=== PATIENT | male | born 1950 | race Caucasian/White ===

== ENCOUNTER 2017-11-06 12:38 | Inpatient (IN) | payer MEDICARE, OTHER ==
[~2017-11-06] VITALS: Ht 182.9 cm; Wt 120.5 kg
[2017-11-06] MEDS ORDERED: FLOMAX0.4 MG PO (13:43)
[2017-11-07] MEDS ORDERED: ZESTRIL20 MG PO (11:59)
[2017-11-07] MEDS ORDERED: METOPROLOL TART25 MG PO (12:01)
[2017-11-07] MEDS ORDERED: FINASTERIDE5 MG PO (12:02)
[2017-11-08] MEDS ORDERED: KEFLEX250 MG PO (09:26)
== END 2017-11-08 11:50 | disposition home or self-care (01) | DRG 683 ==
LOC: ED 12:38 → MS 16:49
PROVIDERS: ADMIT Internal Medicine
DX: N17.9 Acute kidney failure, unspecified (principal); N39.0 Urinary tract infection, site not specified; N40.1 Benign prostatic hyperplasia with lower urinary tract symptoms; R33.8 Other retention of urine; I10 Essential (primary) hypertension; Z79.899 Other long term (current) drug therapy; Z87.442 Personal history of urinary calculi
CPT/HCPCS: 36415; 80048; 80053; 81001; 85025; 87077; 87088; 87186; J0696; J7030

== ENCOUNTER 2018-01-24 11:24 | Emergency (ER) | payer MEDICARE ==
[~2018-01-24] VITALS: Ht 182.9 cm; Wt 119.5 kg
[~2018-01-24 11:24] MED LIST: FINASTERIDE5 MG PO; FLOMAX0.4 MG PO; KEFLEX250 MG PO; METOPROLOL TART25 MG PO; ZESTRIL20 MG PO
[2018-01-24] MEDS ORDERED: INDAPAMIDE1.25 MG PO (11:46)
[2018-01-24] MEDS ORDERED: NORVASC5 MG PO (13:56)
[2018-01-24] MEDS ORDERED: METOPROLOL TART25 MG PO (14:17)
--- NOTE | 2018-01-25 13:08 | EKG ---
[facility] [address] [facility] [place] [address] Signed Normal sinus rhythm Right bundle branch block Abnormal ECG No previous ECGs available Confirmed by CIERA VILLARREAL MD ([id number]) on 01/25/2018 1:08:10 PM Electronically Signed By: CIERA VILLARREAL MD 01/25/18 1308 PATIENT NAME: SHANKAR DEVRIES Electrocardiogram DATE OF : 46 PHYSICIAN: CIERA VILLARREAL MD REPORT #: [id number] REPORT IS CONFIDENTIAL AND NOT TO BE RELEASED WITHOUT AUTHORIZATION
== END 2018-01-24 14:55 | disposition home or self-care (01) ==
LOC: ED 11:24
DX: I12.9 Hypertensive chronic kidney disease with stage 1 through stage 4 chronic kidney disease, or unspecified chronic kidney disease (principal); N18.9 Chronic kidney disease, unspecified; Z87.891 Personal history of nicotine dependence; Z79.899 Other long term (current) drug therapy
CPT/HCPCS: 80053; 84484; 85025; 93005; 93010; 99284

== ENCOUNTER 2020-03-25 09:34 | Emergency (ER) | payer OTHER, MEDICARE ==
[~2020-03-25] VITALS: Ht 182.9 cm; Wt 119.5 kg
--- OUTSIDE RECORDS SUMMARY | ~2020-03-25 | XMS | Encounter Summary ---
Demographics + + + | Address | [address] | | | [place] [address] | + + + | Home Phone | | + + + | Preferred Language | Unknown | + + + | Marital Status | Single | + + + | Episcopal Affiliation | Unknown | + + + | Race | White | + + + | Ethnic Group | Not or | + + + Author + + + | Author | [facility] | | | and [place] | + + + | Organization | [facility] | | | and [place] | + + + | Address | Unknown | + + + | Phone | Unavailable | + + + Support + + +---------+ + | Name | Relationship | Address | Phone | + + +---------+ + | Calderon Wise | ECON | Unknown | | + + +---------+ + Care Team Providers + +------+ + | Care Signal Maintainer Name | Role | Phone | + +------+ + PCP | Unavailable | + +------+ + Encounter Details +--------+ + + + + | Date | Type | Department | Care Team | Description | +--------+ + + + + | 07/19/ | Orders Only | [facility] | Pacheco Munson MD | | | 2019 | | NEPHROLOGY [place] | [address] [place] | | | | | [address] [place] | [address] [place] | | | | | [address] [place] | [address] | | | | | [address] | | | | | | [phone] | | | +--------+ + + + + Social History + +-------+ +--------+------+ | Tobacco Use | Types | Packs/Day | Years | Date | | | | | Used | | + +-------+ +--------+------+ | Never Assessed | | | | | + +-------+ +--------+------+ + + + | Sex Assigned at | Date Recorded | | | | + + + | Not on file | | + + + documented as of this encounter Plan of Treatment Not on filedocumented as of this encounter Procedures + +--------+ + + + | Procedure Name | Priori | Date/Time | Associated Diagnosis | Comments | | | ty | | | | + +--------+ + + + | CBC WITH MANUAL | Routin | 07/19/2018 | | Results for this | | DIFFERENTIAL | e | 12:15 PM | | procedure are in the | | | | PST | | results section. | + +--------+ + + + | PROTEIN/CREATININE | Routin | 07/19/2018 | | Results for this | | RATIO, URINE | e | 12:15 PM | | procedure are in the | | | | PST | | results section. | + +--------+ + + + | URIC ACID | Routin | 07/19/2018 | | Results for this | | | e | 12:15 PM | | procedure are in the | | | | PST | | results section. | + +--------+ + + + | PARATHYROID HORMONE, | Routin | 07/19/2018 | | Results for this | | INTACT | e | 12:15 PM | | procedure are in the | | | | PST | | results section. | + +--------+ + + + | MAGNESIUM | Routin | 07/19/2018 | | Results for this | | | e | 12:15 PM | | procedure are in the | | | | PST | | results section. | + +--------+ + + + | RENAL FUNCTION PANEL | Routin | 07/19/2018 | | Results for this | | | e | 12:15 PM | | procedure are in the | | | | PST | | results section. | + +--------+ + + + documented in this encounter Results Protein/Creatinine Ratio, Urine (07/19/2018 12:15 PM PST) + + + + + + | Component | Value | Ref Range | Performed | Pathologist | | | | | At | Signature | + + + + + + | Protein/Cre | 1219.5 (A) | 0 - 150 | EXTERNAL | | | at Ratio | | | LAB | | + + + + + + + + | Specimen | + + | Urine specimen | | (specimen) | + + + +---------+ + + | Performing | Address | City/State/Zipcode | Phone Number | | Organization | | | | + +---------+ + + | EXTERNAL LAB | | | | + +---------+ + + CBC with Manual Differential (07/19/2018 12:15 PM PST) + +-------+ + + + | Component | Value | Ref Range | Performed | Pathologist | | | | | At | Signature | + +-------+ + + + | WBC | 6.3 | 4.5 - 11.0 10 | EXTERNAL | | | | | | LAB | | + +-------+ + + + | Non- | 5.06 | 4.3 - 5.7 10 | EXTERNAL | | | Red Blood | | | LAB | | | Cells | | | | | | Counted | | | | | + +-------+ + + + | Hemoglobin | 15.5 | 13.5 - 18.0 | EXTERNAL | | | | | g/dL | LAB | | + +-------+ + + + | Hematocrit, | 45.4 | 41 - 50 % | EXTERNAL | | | POC | | | LAB | | + +-------+ + + + | MCV | 89.8 | 81 - 99 fL | EXTERNAL | | | | | | LAB | | + +-------+ + + + | MCH | 31 | 27 - 33 | EXTERNAL | | | | | | LAB | | + +-------+ + + + | MCHC | 34 | 30 - 36 g/dL | EXTERNAL | | | | | | LAB | | + +-------+ + + + | RDW-CV | | % | EXTERNAL | | | | | | LAB | | + +-------+ + + + | Platelet | 140 | 140 - 440 K/ L | EXTERNAL | | | Count | | | LAB | | | Plasma | | | | | + +-------+ + + + | MPV | | fL | EXTERNAL | | | | | | LAB | | + +-------+ + + + | % Segmented | | % | EXTERNAL | | | | | | LAB | | | Neutrophils | | | | | + +-------+ + + + | % | | % | EXTERNAL | | | Lymphocytes | | | LAB | | + +-------+ + + + | % Monocytes | | % | EXTERNAL | | | | | | LAB | | + +-------+ + + + | % | | % | EXTERNAL | | | Eosinophils | | | LAB | | + +-------+ + + + | % Basophils | | % | EXTERNAL | | | | | | LAB | | + +-------+ + + + | Absolute | | / L | EXTERNAL | | | Neutrophils | | | LAB | | + +-------+ + + + | Absolute | | / L | EXTERNAL | | | Lymphocytes | | | LAB | | + +-------+ + + + | Absolute | | / L | EXTERNAL | | | Monocytes | | | LAB | | + +-------+ + + + | Absolute | | / L | EXTERNAL | | | Eosinophils | | | LAB | | + +-------+ + + + | Absolute | | / L | EXTERNAL | | | Basophils | | | LAB | | + +-------+ + + + + + | Specimen | + + | Blood specimen | | (specimen) | + + + +---------+ + + | Performing | Address | City/State/Zipcode | Phone Number | | Organization | | | | + +---------+ + + | EXTERNAL LAB | | | | + +---------+ + + Uric Acid (07/19/2018 12:15 PM PST) + +-------+ + + + | Component | Value | Ref Range | Performed | Pathologist | | | | | At | Signature | + +-------+ + + + | Uric Acid | 7.1 | 4.4 - 7.6 | EXTERNAL | | | | | | LAB | | + +-------+ + + + + + | Specimen | + + | Blood specimen | | (specimen) | + + + +---------+ + + | Performing | Address | City/State/Zipcode | Phone Number | | Organization | | | | + +---------+ + + | EXTERNAL LAB | | | | + +---------+ + + Parathyroid Hormone, Intact (07/19/2018 12:15 PM PST) + + + + + + | Component | Value | Ref Range | Performed | Pathologist | | | | | At | Signature | + + + + + + | PTH INTACT | 286.4 (A) | 15 - 65 pg/mL | EXTERNAL | | | | | | LAB | | + + + + + + + + | Specimen | + + | Blood specimen | | (specimen) | + + + +---------+ + + | Performing | Address | City/State/Zipcode | Phone Number | | Organization | | | | + +---------+ + + | EXTERNAL LAB | | | | + +---------+ + + Magnesium (07/19/2018 12:15 PM PST) + +-------+ + + + | Component | Value | Ref Range | Performed | Pathologist | | | | | At | Signature | + +-------+ + + + | Magnesium | 1.9 | 1.7 - 2.5 mg/dL | EXTERNAL | | | | | | LAB | | + +-------+ + + + + + | Specimen | + + | Blood specimen | | (specimen) | + + + +---------+ + + | Performing | Address | City/State/Zipcode | Phone Number | | Organization | | | | + +---------+ + + | EXTERNAL LAB | | | | + +---------+ + + Renal Function Panel (07/19/2018 12:15 PM PST) + + + + + + | Component | Value | Ref Range | Performed | Pathologist | | | | | At | Signature | + + + + + + | Glucose, | 97 | 70 - 100 mg/dL | EXTERNAL | | | Fasting | | | LAB | | + + + + + + | BUN | 32 (A) | 6 - 23 mg/dL | EXTERNAL | | | | | | LAB | | + + + + + + | Creatinine | 1.69 (A) | 0.70 - 1.25 | EXTERNAL | | | | | mg/dL | LAB | | + + + + + + | PHOSPHORUS | 7.9 (A) | 2.5 - 5.0 mg/dL | EXTERNAL | | | | | | LAB | | + + + + + + | Albumin | 4.0 | 3.5 - 5.0 | EXTERNAL | | | | | | LAB | | + + + + + + | Na | 143 | 132 - 143 | EXTERNAL | | | | | mmol/L | LAB | | + + + + + + | K | 3.7 | 3.6 - 5.1 | EXTERNAL | | | | | mmol/L | LAB | | + + + + + + | Cl | 106 | 95 - 112 mmol/L | EXTERNAL | | | | | | LAB | | + + + + + + | CO2 | 23 | 19 - 31 mmol/L | EXTERNAL | | | | | | LAB | | + + + + + + | Anion Gap | 17.7 | 7 - 21 mmol/L | EXTERNAL | | | | | | LAB | | + + + + + + | eGFR, | | | EXTERNAL | | | non- | | | LAB | | | [place] | | | | | + + + + + + | Phosphorus, | | | EXTERNAL | | | Inorganic | | | LAB | | + + + + + + | BUN/Creatin | 18.9 | 6.0 - 28.6 | EXTERNAL | | | ine Ratio | | | LAB | | + + + + + + | Calcium | 10.0 | 8.5 - 10.3 | EXTERNAL | | | | | mg/dL | LAB | | + + + + + + | Estimated | 40 (A) | 60 - 140 mg/dL | EXTERNAL | | | GFR | | | LAB | | + + + + + + + + | Specimen | + + | Blood specimen | | (specimen) | + + + +---------+ + + | Performing | Address | City/State/Zipcode | Phone Number | | Organization | | | | + +---------+ + + | EXTERNAL LAB | | | | + +---------+ + + documented in this encounter Visit Diagnoses Not on filedocumented in this encounter"
--- OUTSIDE RECORDS SUMMARY | ~2020-03-25 | XMS | Encounter Summary ---
Demographics + + + | Address | [address] | | | [place] [address] | + + + | Home Phone | | + + + | Preferred Language | Unknown | + + + | Marital Status | Single | + + + | Gnosticist Affiliation | Unknown | + + + | Race | White | + + + | Ethnic Group | Not or | + + + Author + + + | Author | [facility] | | | and [place] | + + + | Organization | [facility] | | | [...] Team Providers + +------+ + | Care Bag Sorter Name | Role | Phone | + +------+ + | Eric Jerry STUDIO COORDINATOR | PCP | | + +------+ + Reason for Visit +---------+ + | Reason | Comments | +---------+ + | Results | 08/14/19 | +---------+ + Encounter Details +--------+ + + + + | Date | Type | Department | Care Team | Description | +--------+ + + + + | 08/16/ | Documentati | [facility] | Severino, | Results (08/14/19) | | 2020 | on | NEPHROLOGY [place] | [facility] | | | | | [address] | [place] | | | | | [address] [facility] [place] | | | | | | [address] | | | | | | [phone] | | | +--------+ + + + + Social History + +-------+ +--------+------+ | Tobacco Use | Types | Packs/Day | Years | Date | | | | | Used | | + +-------+ +--------+------+ | Former Smoker | | 2 | | | + +-------+ +--------+------+ + [...] | + +--------+ + + + | EXTERNAL LAB: [facility], | Routin | 08/14/2019 | | Results for this | | INTACT | e | | | procedure are in the | | | | | | results section. | + +--------+ + + + | CBC NO DIFFERENTIAL | Routin | 08/14/2019 | | Results for this | | | e | | | procedure are in the | | | | | | results section. | + +--------+ + + + | PROTEIN/CREATININE | Routin | 08/14/2019 | | Results for this | | RATIO, URINE | e | | | procedure are in the | | | | | | results section. | + +--------+ + + + | RENAL FUNCTION PANEL | Routin | 08/14/2019 | | Results for this | | | e | | | procedure are in the | | | | | | results section. | + +--------+ + + + documented in this encounter Results External Lab: PTH, Intact (08/14/2019) + + + + + + | Component | Value | Ref Range | Performed | Pathologist | | | | | At | Signature | + + + + + + | PTH Intact, | 368.6 (A) | 15 - 65 | | | | External | | | | | + + + + + + + + | Specimen | + + | | + + CBC with Manual Differential (08/14/2019) + + + + + + | Component | Value | Ref Range | Performed | Pathologist | | | | | At | Signature | + + + + + + | WBC | 6.7 | 4.5 - 11.0 | | | + + + + + + | Red Blood | 5.05 | 4.30 - 5.70 | | | | Cells | | M/uL | | | + + + + + + | Hemoglobin | 15.3 | 13.5 - 18.0 | | | + + + + + + | Hematocrit, | 45.2 | 41.0 - 50.0 % | | | | POC | | | | | + + + + + + | MCV | 89.6 | 81.0 - 99.0 fL | | | + + + + + + | MCH | 30.0 | 27.0 - 33.0 pg | | | + + + + + + | MCHC | 34.0 | 30.0 - 36.0 | | | | | | g/dL | | | + + + + + + | Platelet | 167 | 140 - 440 | | | | Count | | | | | | Plasma | | | | | + + + + + + | RDW | 13.7 | 10.5 - 15.0 | | | + + + + + + | BAL | 72 | 39 - 80 % | | | | Neutrophils | | | | | | % | | | | | + + + + + + | % | 14.5 (A) | 24 - 44 | | | | Lymphocytes | | | | | + + + + + + | Monocyte % | 7.2 | 0 - 12 | | | + + + + + + | BAL | 3 | 0 - 6 % | | | | Eosinophils | | | | | | % | | | | | + + + + + + | % | 3 (A) | 0 - 2 % | | | | Basophils, | | | | | | Body Fluid | | | | | + + + + + + + + | Specimen | + + | Blood | + + Renal Function Panel (08/14/2019) + + + + + + | Component | Value | Ref Range | Performed | Pathologist | | | | | At | Signature | + + + + + + | Na | 146 (A) | 132 - 143 | | | | | | mmol/L | | | + + + + + + | K | 3.8 | 3.6 - 5.1 | | | | | | mmol/L | | | + + + + + + | Cl | 109 | 95 - 112 mmol/L | | | + + + + + + | CO2 | 27 | 19 - 31 mmol/L | | | + + + + + + | Anion Gap | 14 | 7 - 21 mmol/L | | | + + + + + + | Glucose | 99 | 70 - 100 mg/dL | | | + + + + + + | BUN | 40 (A) | 6 - 23 mg/dL | | | + + + + + + | Creatinine | 1.73 (A) | 0.70 - 1.18 | | | | | | mg/dL | | | + + + + + + | Estimated | 39.0 (A) | 60.0 - 140.0 | | | | GFR | | mL/min/1.73m2 | | | + + + + + + | BUN/Creatin | 23.1 | 6.0 - 28.6 | | | | ine Ratio | | | | | + + + + + + | Albumin | 4.2 | 3.5 - 5.0 g/dL | | | + + + + + + | Calcium | 10.1 | 8.5 - 10.3 | | | + + + + + + | PHOSPHORUS | 2.6 | 2.5 - 5.0 | | | + + + + + + + + | Specimen | + + | Blood | + + Protein/Creatinine Ratio, Urine (08/14/2019) + + + + + + | Component | Value | Ref Range | Performed | Pathologist | | | | | At | Signature | + + + + + + | Protein/Cre | 1,069.8 (A) | 0 - 150 | | | | at Ratio | | | | | + + + + + + + + | Specimen | + + | Urine | + + documented in this encounter Visit Diagnoses Not on filedocumented in this encounter"
--- OUTSIDE RECORDS SUMMARY | ~2020-03-25 | XMS | Encounter Summary ---
Demographics + + + | Address | [address] | | | [place] [address] | + + + | Home Phone | | + + + | Preferred Language | Unknown | + + + | Marital Status | Single | + + + | Presybeterian Affiliation | Unknown | + + + | Race | White | + + + | Ethnic Group | Not or | + + + Author + + + | Author | [facility] | | | and [place] | + + + | Organization | [facility] | | | and [...] Team Providers + +------+ + | Care Rough Rice Tender Name | Role | Phone | + +------+ + | Lavon Jennings MD | PCP | | + +------+ + Encounter Details +--------+ + + + + | Date | Type | Department | Care Team | Description | +--------+ + + + + | 02/15/ | Orders Only | [facility] | Pacheco Munson MD | Abnormal finding in | | 2019 | | NEPRHOLOGY [place] | [address] | urine; Localized | | | | [address] | [address] [place], [place] | edema; Calculus in | | | | [address] [place], [place] | [address] | bladder; Other | | | | [address] | | specified abnormal | | | | [phone] | | findings of blood | | | | | | chemistry; | | | | | | Hypokalemia; | | | | | | Hypercalcemia; | | | | | | Chronic kidney | | | | | | disease, stage III | | | | | | (moderate) (HCC); | | | | | | Persistent | | | | | | proteinuria; | | | | | | Secondary | | | | | | hyperparathyroidism | | | | | | of renal origin | | | | | | (HCC); Vitamin D | | | | | | deficiency; | | | | | | Essential (primary) | | | | | | hypertension | +--------+ + + + + Social [...] as of this encounter Plan of Treatment + +------+--------+ + + | Name | Type | Priori | Associated Diagnoses | Order Schedule | | | | ty | | | + +------+--------+ + + | Stone risk profile | Lab | Routin | Abnormal finding | Expected: | | | | e | in urine Localized | 04/03/2018, Expires: | | | | | edema Calculus in | 04/02/2019 | | | | | bladder Other | | | | | | specified abnormal | | | | | | findings of blood | | | | | | chemistry | | | | | | Hypokalemia | | | | | | Hypercalcemia | | | | | | Chronic kidney | | | | | | disease, stage III | | | | | | (moderate) (HCC) | | + +------+--------+ + + | Basic Metabolic | Lab | Routin | Abnormal finding | Expected: | | Panel | | e | in urine Localized | 04/05/2018, Expires: | | | | | edema Calculus in | 04/02/2019 | | | | | bladder Other | | | | | | specified abnormal | | | | | | findings of blood | | | | | | chemistry | | | | | | Hypokalemia | | | | | | Hypercalcemia | | | | | | Chronic kidney | | | | | | disease, stage III | | | | | | (moderate) (HCC) | | + +------+--------+ + + | Basic Metabolic | Lab | Routin | Persistent | Expected: | | Panel | | e | proteinuria Chronic | 07/30/2018, Expires: | | | | | kidney disease, | 07/23/2019 | | | | | stage III (moderate) | | | | | | (HCC) Secondary | | | | | | hyperparathyroidism | | | | | | of renal origin | | | | | | ([facility]) Vitamin D | | | | | | deficiency | | | | | | Essential (primary) | | | | | | hypertension | | + +------+--------+ + + | Renal Function Panel | Lab | Routin | Essential | Expected: | | | | e | (primary) | 01/28/2019, Expires: | | | | | hypertension | 10/30/2019 | | | | | Persistent | | | | | | proteinuria Chronic | | | | | | kidney disease, | | | | | | stage III (moderate) | | | | | | (HCC) Secondary | | | | | | hyperparathyroidism | | | | | | of renal origin | | | | | | (HCC) | | + +------+--------+ + + | CBC with | Lab | Routin | Essential | Expected: | | Differential | | e | (primary) | 01/28/2019, Expires: | | | | | hypertension | 10/30/2019 | | | | | Persistent | | | | | | proteinuria Chronic | | | | | | kidney disease, | | | | | | stage III (moderate) | | | | | | (HCC) Secondary | | | | | | hyperparathyroidism | | | | | | of renal origin | | | | | | (HCC) | | + +------+--------+ + + | Parathyroid Hormone, | Lab | Routin | Essential | Expected: | | Intact | | e | (primary) | 01/28/2019, Expires: | | | | | hypertension | 10/30/2019 | | | | | Persistent | | | | | | proteinuria Chronic | | | | | | kidney disease, | | | | | | stage III (moderate) | | | | | | (HCC) Secondary | | | | | | hyperparathyroidism | | | | | | of renal origin | | | | | | (HCC) | | + +------+--------+ + + | Protein/Creatinine | Lab | Routin | Essential | Expected: | | Ratio, Urine | | e | (primary) | 01/28/2019, Expires: | | | | | hypertension | 10/30/2019 | | | | | Persistent | | | | | | proteinuria Chronic | | | | | | kidney disease, | | | | | | stage III (moderate) | | | | | | (HCC) Secondary | | | | | | hyperparathyroidism | | | | | | of renal origin | | | | | | ([facility]) | | + +------+--------+ + + documented as of this encounter Visit Diagnoses + + | Diagnosis | + + | Abnormal finding in urine Other nonspecific finding on examination of urine | + + | Localized edema Edema | + + | Calculus in bladder Other calculus in bladder | + + | Other specified abnormal findings of blood chemistry | + + | Hypokalemia Hypopotassemia | + + | Hypercalcemia | + + | Chronic kidney disease, stage III (moderate) (HCC) Chronic kidney disease, Stage III | | (moderate) | + + | Persistent proteinuria Proteinuria | + + | Secondary hyperparathyroidism of renal origin (HCC) Secondary hyperparathyroidism (of | | renal origin) | + + | Vitamin D deficiency Unspecified vitamin D deficiency | + + | Essential (primary) hypertension Unspecified essential hypertension | + + documented in this encounter"
--- OUTSIDE RECORDS SUMMARY | ~2020-03-25 | XMS | Encounter Summary ---
Demographics + + + | Address | [address] | | | [place] [address] | + + + | Home Phone | | + + + | Preferred Language | Unknown | + + + | Marital Status | Single | + + + | Hoahaoism Affiliation | Unknown | + + + | Race | White | + + + | Ethnic Group | Not or | + + + Author + + + | Author | [facility] | | | and [place] | + + + | Organization | [facility] | | [...] Team Providers + +------+ + | Care Dairy Feed Sales Consultant Name | Role | Phone | + +------+ + | Eric Jerry NP | PCP | | + +------+ + Encounter Details +--------+---------+ + + + | Date | Type | Department | Care Team | Description | +--------+---------+ + + + | 08/19/ | Office | [facility] | Pacheco Munson MD | CKD (chronic kidney | | 2020 | Visit | NEPHROLOGY [place] | [address] [place] | disease), stage III | | | | [address] | [address] [place], [place] | (Primary Dx); | | | | [address] | [id number] | Secondary | | | | [place], [place] | | hyperparathyroidism | | | | [address] | | (HCC); Persistent | | | | [phone] | | proteinuria; | | | | | | Hypercalcemia; | | | | | | Vitamin D | | | | | | deficiency; | | | | | | Bilateral leg edema; | | | | | | Hypocitraturia; | | | | | | Essential (primary) | | | | | | hypertension | +--------+---------+ + + + Social History + +-------+ +--------+------+ | Tobacco Use | Types | Packs/Day | Years | Date | | | | | Used | | + +-------+ +--------+------+ | Former Smoker | | 2 | | | + +-------+ +--------+------+ + +---+---+---+ | Smokeless Tobacco: | | | | | Never Used | | | | + +---+---+---+ + + +---------+ + | Alcohol Use | Drinks/Week | oz/Week | Comments | + + +---------+ + | Not Currently | | | | + + +---------+ + + + + | Sex Assigned at | Date Recorded | | | | + + + | Not on file | | + + + documented as of this encounter Last Filed Vital Signs + + + + + | Vital Sign | Reading | Time Taken | Comments | + + + + + | Blood Pressure | 138/90 | 08/19/2019 9:40 AM | | | | | PST | | + + + + + | Pulse | 88 | 08/19/2019 9:40 AM | | | | | PST | | + + + + + | Temperature | - | - | | + + + + + | Respiratory Rate | - | - | | + + + + + | Oxygen Saturation | - | - | | + + + + + | Inhaled Oxygen | - | - | | | Concentration | | | | + + + + + | Weight | 116 kg (255 lb 11.2 | 08/19/2019 9:40 AM | | | | oz) | PST | | + + + + + | Height | 182.9 cm (6') | 08/19/2019 9:40 AM | | | | | PST | | + + + + + | Body Mass Index | 34.68 | 08/19/2019 9:40 AM | | | | | PST | | + + + + + documented in this encounter Patient Instructions Patient Instructions Pacheco Munson MD - 08/19/2019 9:40 AM PSTDiscussions/Recommendations : I discussed today with Mr. Wise the meaning of his hypertension and the interaction of that with his CKD & salt intake. I stressed the importance of keeping his BP controlled and avoiding getting dehydrated i f we are to have a chance at helping preserve his renal function. He showed good understand ing. I gave him instructions on how to chart his blood pressure in the appropriate manner at home. He is to call us if they fall outside of the optimal provided range. He will bring his sphygmomanometer for validation once a year. He will strictly abide by a low salt & low purine diet. He will avoid all kinds of NSAIDs for analgesia. Also: I will not change any of his vasoactive meds today. I again asked him to drink 4-6 oz of pure lemon or navajo juice sweetened & diluted to his taste throughout the day. I again sent him for a parathyroid scan (nuclear medicine), as his hypercalcemia & his h yperparathyroidism are out of proportion to his CKD. He will bring me back his home BP charts if they fall outside of the optimal provided ra nge. At that time, I will decide whether any changes to his vasoactive regimen are warranted . I advised him to exercise regularly but safely & to try to lose weight methodically; He voiced good understanding. Discussed to avoid alcohol and caffeine. Patient has expressed understanding of today's instructions, all questions have been ans wered to their satisfaction and written instructions have been provided. He will F/U with your office regularly. He will have RFP, CBC, uric acid, intact PTH, Urine total cduhspn-qm-rgohmuelog ratio do ne before he comes back in 6 months. 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 Wise in the office today; he is here to F/U on his resistant hy pertension, CKD & its associated complications. The patient has had history of hypertension since ~2002; his BP control has been reportedly inadequate; he denies any history of prolonged exposure to NSAIDs or recent exposure to kno wn nephrotoxins. he denies any recurrent nephrolithiasis or pyelonephritis. he tells me that he's had no history of gross hematuria or dysuria. He had urinary retention 08/2012; recurr ed in late 2016; has had a Castellano since. No symptoms of UTI. No history of passing kidney sto bruno, but he tells me that he has bladder stones; he has no foamy urine either; his baseline Creatinine was 1.2 from earlier 2012; but since 01/2013, it's been in the 1.7-2.1 range. He tells me that sometime in 2017 he had multiple 'bladder' stones & needed cystoscopy. There is no family history of renal genetic diseases such as PKD. He says that he feels 'good ' today, reports some mild low back pain, reports he frequently forgets to take his medications, stays up late at night, sleeps during the day, eats fast f ood. Reports some postural dizziness at times. Reports his BP machine is broken, not check ing. He denies any blurred vision tinnitus, headache, fever, chills, or cough. No nausea, vomit ing, abdominal pain, diarrhea, melena, or hematochezia. No chest pain, palpitation, loss of consciousness, orthopnea, paroxysmal nocturnal dyspnea, or leg edema. He's had postural diz ziness chronically; he F/U's on that with your office. No recent falls. No LOC. His calcium has been slightly over 10 since early 2016, PTH has improved some after stoppin g vitamin D supplements and limiting dairy intake, but ernestine again in 2018. The following portions of the patient's history were reviewed and updated as appropriate: a llergies, current medications, past medical history, past social history, past surgical hist ory, family history and problem list. As in History of Present Illness & in Assessment. All the pertinent systems were reviewed a nd were otherwise negative. Current Outpatient Medications: amLODIPine (NORVASC) 5 mg tablet, Take 5 mg by mouth Daily., Disp: , Rfl: aspirin 81 MG EC tablet, Take 1 tablet by mouth daily., Disp: 90 tablet, Rfl: 3 cholecalciferol (VITAMIN D-3) 1,000 units capsule, Take 1,000 Units by mouth daily., D isp: , Rfl: docusate-senna (SENOKOT-S) 50-8.6 mg per tablet, Take 1 tablet by mouth daily., Disp: , Rfl: finasteride (PROSCAR) 5 mg tablet, Take 5 mg by mouth daily., Disp: , Rfl: hydroCHLOROthiazide 25 mg tablet, Take 1 tablet by mouth daily., Disp: 90 tablet, Rfl: 3 indapamide (LOZOL) 1.25 MG tablet, Take 1.25 mg by mouth every morning., Disp: , Rfl: lisinopril (PRINIVIL, ZESTRIL) 20 mg tablet, TAKE ONE TABLET BY MOUTH TWICE A DAY, Dis p: 60 tablet, Rfl: 0 loperamide (IMODIUM) 2 mg capsule, Take 2 mg by mouth 4 (four) times daily as needed f or Diarrhea. (Patient not taking: Reported on 08/19/2019), Disp: , Rfl: metoprolol succinate (TOPROL-XL) 100 mg ER tablet, Take 1 tablet by mouth daily. (Caroline ent not taking: Reported on 08/19/2019), Disp: 90 tablet, Rfl: 3 metoprolol tartrate (LOPRESSOR) 25 mg tablet, Take 25 mg by mouth 2 (two) times daily. , Disp: , Rfl: sodium bicarbonate 650 mg tablet, Take 1 tablet by mouth 4 (four) times daily. (Patien t not taking: Reported on 08/19/2019), Disp: 120 tablet, Rfl: 11 sodium citrate-citric acid (BICITRA) 500-334 MG/5ML solution, Take 15 mLs by mouth 3 ( three) times daily with meals. (Patient not taking: Reported on 08/19/2019), Disp: 1,419 mL, Rfl: 11 spironolactone (ALDACTONE) 25 mg tablet, Take 25 mg by mouth 2 times daily., Disp: , R fl: tamsulosin (FLOMAX) 0.4 mg CAPS, TAKE ONE CAPSULE BY MOUTH TWICE A DAY, Disp: 180 caps ule, Rfl: 3 Physical Exam: BP 138/90 | Pulse 88 | Ht 1.829 m (6') | Wt 116 kg (255 lb 11.2 oz) | BMI 34.68 kg/m General appearance: Pleasant, obese, not in acute distress. Neck: Supple without tracheal deviation or jugular venous distension. Head and ENT: Head is atraumatic. The oropharynx is without erythema or thrush. Eyes: Anicteric. The extraocular muscle movements are normal. Lungs: Clear to auscultation bilaterally. There are no wheezes. Heart: Regular rate and rhythm without any rub, gallop. No murmur. Abdominal exam: Obese. Soft and nontender with normal bowel sounds. An umbilical hernia no trevor. Castellano in place. Musculoskeletal: No costovertebral angle tenderness bilaterally. Extremities: Warm to touch with trace leg edema. There is no cyanosis. Skin: There are no rashes, petechiae, or ecchymosis. Neurological: Awake, alert, and oriented to time, place, and person. Normal gross motor po wer. There is no asterixis. Psychiatric: The patient s behavior is normal. Judgment and thought content are normal. Lab Results Component Value Date HGB 15.3 08/14/2019 HGB 16.2 10/22/2018 NA 146 (A) 08/14/2019 K 3.8 08/14/2019 CL 109 08/14/2019 CO2 27 08/14/2019 BUN 40 (A) 08/14/2019 CREA 1.73 (A) 08/14/2019 CALCIUM 10.1 08/14/2019 ALBUMIN 4.2 08/14/2019 EGFR 39.0 (A) 08/14/2019 PTH 323.6 (A) 10/22/2018 LABPROT 1,069.8 (A) 08/14/2019 [id number] 35 11/09/2016 Protein 6.5 Range: 6.0-8.0 Albumin 4.32 Range: 3.2-5.5 Alpha 1 0.21 Range: 0.1-0.32 Alpha 2 0.66 Range: 0.54-0.90 Beta 0.78 Range: 0.60-1.09 Gamma 0.52 Range: 0.36-1.8 Immunoglobulin G 578 Range: 664-1411 Immunoglobulin A 245 Range: 66-433 Immunoglobulin M 31 Range: 31-214 Specimen Collected: 11/11/16 12:36 Last Resulted: 11/11/16 12:40 Assessment: Mr. Wise is a 68 y.o. male patient with history of uncontrolled hypertension & stage II I CKD. RENAL FUNCTION: Closer to his baseline vs 12/2012 hemodynamic FAN in the setting of a UTI & volume depletion. 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 Discussions/Recommendations: I discussed today with Mr. Wise the meaning of his hypertension and the interaction of that with his CKD & salt intake. I stressed the importance of keeping his BP controlled and avoiding getting dehydrated i f we are to have a chance at helping preserve his renal function. He showed good understand ing. I gave him instructions on how to chart his blood pressure in the appropriate manner at home. He is to call us if they fall outside of the optimal provided range. He will bring his sphygmomanometer for validation once a year. He will strictly abide by a low salt & low purine diet. He will avoid all kinds of NSAIDs for analgesia. Also: I will not change any of his vasoactive meds today. I again asked him to drink 4-6 oz of pure lemon or navajo juice sweetened & diluted to his taste throughout the day. I again sent him for a parathyroid scan (nuclear medicine), as his hypercalcemia & his h yperparathyroidism are out of proportion to his CKD. He will bring me back his home BP charts if they fall outside of the optimal provided ra nge. At that time, I will decide whether any changes to his vasoactive regimen are warranted . I advised him to exercise regularly but safely & to try to lose weight methodically; He voiced good understanding. Discussed to avoid alcohol and caffeine. Patient has expressed understanding of today's instructions, all questions have been ans wered to their satisfaction and written instructions have been provided. He will F/U with your office regularly. He will have RFP, CBC, uric acid, intact PTH, Urine total qaeadxc-np-somvtnspyd ratio do ne before he comes back in 6 months. I spent 15 minutes of this 25-minute visit in education, counseling and answering all of his questions to his satisfaction. Thank you Eric for the opportunity to follow up with this patient and be part of the care t se. Please do not hesitate to call me at any time with questions or concerns. Truly yours, Pacheco Munson MD [facility] documented in this enco unter Plan of Treatment Not on filedocumented as of this encounter Visit Diagnoses + + | Diagnosis | + + | CKD (chronic kidney disease), stage III - Primary | + + | Secondary hyperparathyroidism (HCC) Secondary hyperparathyroidism (of renal origin) | + + | Persistent proteinuria Proteinuria | + + | Hypercalcemia | + + | Vitamin D deficiency Unspecified vitamin D deficiency | + + | Bilateral leg edema Edema | + + | Hypocitraturia Other nonspecific finding on examination of urine | + + | Essential (primary) hypertension Unspecified essential hypertension | + + documented in this encounter"
--- OUTSIDE RECORDS SUMMARY | ~2020-03-25 | XMS | Encounter Summary ---
Demographics + + + | Address | [address] | | | [place] [address] | + + + | Home Phone | | + + + | Preferred Language | Unknown | + + + | Marital Status | Single | + + + | Zoroastrian Affiliation | Unknown | + + + | Race | White | + + + | Ethnic Group | Not or | + + + Author + + + | Author | [facility] | | | and [place] | + + + | Organization | [facility] | | [...] Team Providers + +------+ + | Care Inflated Pad Buffer Name | Role | Phone | + +------+ + | Eric Jerry NP | PCP | | + +------+ + Encounter Details +--------+ + + + + | Date | Type | Department | Care Team | Description | +--------+ + + + + | 01/23/ | Orders Only | [facility] | Pacheco Munson MD | | | 2018 | | NEPRHOLOGY [place] | [address] [facility] | | | | | [address] | [address] [place], [place] | | | | | [address] [place], [place] | [address] | | | | | [address] | | | | | | [phone] | | | +--------+ + + + [...] filedocumented as of this encounter Visit Diagnoses Not on filedocumented in this encounter"
--- OUTSIDE RECORDS SUMMARY | ~2020-03-25 | XMS | Encounter Summary ---
Demographics + + + | Address | [address] | | | [place] [address] | + + + | Home Phone | | + + + | Preferred Language | Unknown | + + + | Marital Status | Single | + + + | Druze Affiliation | Unknown | + + + | Race | White | + + + | Ethnic Group | Not or | + + + Author + + + | Author | [facility] | | | and [place] | + + + | Organization | [facility] | | [...] Team Providers + +------+ + | Care Validation Scientist Name | Role | Phone | + +------+ + PCP | Unavailable | + +------+ + Encounter Details +--------+ + + + + | Date | Type | Department | Care Team | Description | +--------+ + + + + | 01/05/ | Orders Only | [facility] | Conversion | | | 2018 | | NEPHROLOGY [place] | Transaction, | | | | | [address] | Provider Unknown | | | | | [address] [place] | | | | | | [phone] | (Fax) | | | | | [phone] | | | +--------+ + + + [...] +--------+ + + + | EXTERNAL LAB: CBC | Routin | 01/05/2018 | | Results for this | | | e | 10:31 AM | | procedure are in the | | | | PDT | | results section. | + +--------+ + + + | URINALYSIS, | Routin | 01/05/2018 | | Results for this | | MICROSCOPIC ONLY | e | 10:31 AM | | procedure are in the | | | | PDT | | results section. | + +--------+ + + + | PROTEIN/CREATININE | Routin | 01/05/2018 | | Results for this | | RATIO, URINE | e | 10:31 AM | | procedure are in the | | | | PDT | | results section. | + +--------+ + + + | CULTURE, URINE | Routin | 01/05/2018 | | Results for this | | | e | 10:31 AM | | procedure are in the | | | | PDT | | results section. | + +--------+ + + + | URIC ACID | Routin | 01/05/2018 | | Results for this | | | e | 10:31 AM | | procedure are in the | | | | PDT | | results section. | + +--------+ + + + | PARATHYROID HORMONE, | Routin | 01/05/2018 | | Results for this | | INTACT | e | 10:31 AM | | procedure are in the | | | | PDT | | results section. | + +--------+ + + + | MAGNESIUM | Routin | 01/05/2018 | | Results for this | | | e | 10:31 AM | | procedure are in the | | | | PDT | | results section. | + +--------+ + + + | RENAL FUNCTION PANEL | Routin | 01/05/2018 | | Results for this | | | e | 10:31 AM | | procedure are in the | | | | PDT | | results section. | + +--------+ + + + documented in this encounter Results Culture, Urine (01/05/2018 10:31 AM PDT) + + | Specimen | + + | Urine specimen | | (specimen) | + + + + + | Narrative | Performed At | + + + | Specimen Description Urine CULTURE | EXTERNAL LAB | | Pseudomonas | | | Aeruginosa REPORT STATUS Final | | + + + + +---------+ + + | Performing | Address | City/State/Zipcode | Phone Number | | Organization | | | | + +---------+ + + | EXTERNAL LAB | | | | + +---------+ + + Protein/Creatinine Ratio, Urine (01/05/2018 10:31 AM PDT) + + + + + + | Component | Value | Ref Range | Performed | Pathologist | | | | | At | Signature | + + + + + + | Protein/Cre | 885.7 (A) | 0 - 150 | EXTERNAL [...] | | | + +---------+ + + Urinalysis, Microscopic Only (01/05/2018 10:31 AM PDT) + + + + + + | Component | Value | Ref Range | Performed | Pathologist | | | | | At | Signature | + + + + + + | Color | Yellow | | EXTERNAL | | | | | | LAB | | + + + + + + | Clarity, | Clear | | EXTERNAL | | | Urine | | | LAB | | + + + + + + | Specific | 1.012 | 1.005 - 1.030 | EXTERNAL | | | [place], | | | LAB | | | Urine | | | | | + + + + + + | Leukocyte | Trace | | EXTERNAL | | | Esterase, | | | LAB | | | Urine | | | | | + + + + + + | Nitrite, | Trace | | EXTERNAL | | | Urine | | | LAB | | + + + + + + | Urobilinoge | Normal | | EXTERNAL | | | n, Urine | | | LAB | | + + + + + + | Protein, | Comment: 30 | | EXTERNAL | | | Urine | | | LAB | | + + + + + + | pH, Urine | 5 | 5 - 9 | EXTERNAL | | | | | | LAB | | + + + + + + | Blood, | Positive | | EXTERNAL | | | Urine | | | LAB | | + + + + + + | Ketones | Negative | | EXTERNAL | | | | | | LAB | | + + + + + + | Bilirubin, | Negative | | EXTERNAL | | | Urine | | | LAB | | + + + + + + | Glucose, | Negative | | EXTERNAL | | | Urine | | | LAB | | + + + + + + + + | Specimen | + + | Urine specimen | | (specimen) | + + + + + | Narrative | Performed At | + + + | Casts: Hyaline 1+ WBC's: >50 H RBC's: 15 H Bacteria: 1+ | EXTERNAL LAB | + + + + +---------+ + + | Performing | Address | City/State/Zipcode | Phone Number | | Organization | | | | + +---------+ + + | EXTERNAL LAB | | | | + +---------+ + + External Lab: CBC (01/05/2018 10:31 AM PDT) + +-------+ + + + | Component | Value | Ref Range | Performed | Pathologist | | | | | At | Signature | + +-------+ + + + | WBC | 6.0 | 4.5 - 11.0 10 | EXTERNAL | | | | | | LAB | | + +-------+ + + + | Non- | 4.72 | 4.3 - 5.7 10 | EXTERNAL | | | Red Blood | | | LAB | | | Cells | | | | | | Counted | | | | | + +-------+ + + + | Hemoglobin | 14.5 | 13.5 - 18.0 | EXTERNAL | | | | | g/dL | LAB | | + +-------+ + + + | Hematocrit, | 43.7 | 41 - 50 % | EXTERNAL | | | POC | | | LAB | | + +-------+ + + + | MCV | 92.5 | 81 - 99 fL | EXTERNAL | | | | | | LAB | | + +-------+ + + + | MCH | 31 | 27 - 33 pg | EXTERNAL | | | | | | LAB | | + +-------+ + + + | MCHC | 33 | 30 - 36 g/dL | EXTERNAL | | | | | | LAB | | + +-------+ + + + | Platelet | 193 | 140 - 440 K/ L | EXTERNAL | | | Count | | | LAB | | | Plasma | | | | | + +-------+ + + + | RDW-CV | 14.5 | 10.5 - 15.0 % | EXTERNAL | | | | | | LAB | | + +-------+ + + + | MPV | | fL | EXTERNAL | | | | | | LAB | | + +-------+ + + + | Differentia | | | EXTERNAL | | | l Type | | | LAB | | + [...] / L | EXTERNAL | | | Segmented | | | LAB | | | [...] | + +---------+ + + Uric Acid (01/05/2018 10:31 AM PDT) + +-------+ + + + | Component | Value | Ref Range | Performed | Pathologist | | | | | At | Signature | + +-------+ + + + | Uric Acid | 5.7 | 4.4 - 7.6 | EXTERNAL | [...] + +---------+ + + Parathyroid Hormone, Intact (01/05/2018 10:31 AM PDT) + + + + + + | Component | Value | Ref Range | Performed | Pathologist | | | | | At | Signature | + + + + + + | PTH INTACT | 239.8 (A) | 15 - 65 pg/mL | [...] | | + +---------+ + + Magnesium (01/05/2018 10:31 AM PDT) + +-------+ + + + | Component | Value | Ref Range | Performed | Pathologist | | | | | At | Signature | + +-------+ + + + | Magnesium | 2.1 | 1.7 - 2.5 mg/dL | EXTERNAL [...] + +---------+ + + Renal Function Panel (01/05/2018 10:31 AM PDT) + + + + + + | Component | Value | Ref Range | Performed | Pathologist | | | | | At | Signature | + + + + + + | Glucose, | 96 | 70 - 100 mg/dL | EXTERNAL | | | Fasting | | | LAB | | + + + + + + | BUN | 39 (A) | 6 - 23 mg/dL | EXTERNAL | | | | | | LAB | | + + + + + + | Creatinine | 1.73 (A) | 0.7 - 1.25 | EXTERNAL | | | | | mg/dL | LAB | | + + + + + + | PHOSPHORUS | 2.7 | 2.5 - 5.0 mg/dL | EXTERNAL | | | | | | LAB | | + + + + + + | Albumin | 4.1 | 3.5 - 5.0 | EXTERNAL | | | | | | LAB | | + + + + + + | Na | 144 (A) | 132 - 143 | EXTERNAL | | | | | mmol/L | LAB | | + + + + + + | K | 4.4 | 3.6 - 5.1 | EXTERNAL | | | | | mmol/L | LAB | | + + + + + + | Cl | 112 | 95 - 112 mmol/L | EXTERNAL | | | | | | LAB | | + + + + + + | CO2 | 20 | 19 - 31 mmol/L | EXTERNAL | | | | | | LAB | | + + + + + + | Anion Gap | 16.4 | 7 - 21 mmol/L | EXTERNAL | | | | | | LAB | | + + + + + + | eGFR, | | | EXTERNAL | | | non- | | | LAB | | | Lithuanian | | | | | + + + + + + | Phosphorus, | | | EXTERNAL | | | Inorganic | | | LAB | | + + + + + + | BUN/Creatin | 22.5 | 6.0 - 28.6 | EXTERNAL | | | ine Ratio | | | LAB | | + + + + + + | Calcium | 10.2 | 8.4 - 10.2 | EXTERNAL | | | | | mg/dL | LAB | | + + + + + + | Estimated | 39 (A) | 60 mg/dL | EXTERNAL | | | GFR [...]
--- OUTSIDE RECORDS SUMMARY | ~2020-03-25 | XMS | Encounter Summary ---
Demographics + + + | Address | [address] | | | [place] [address] | + + + | Home Phone | | + + + | Preferred Language | Unknown | + + + | Marital Status | Single | + + + | Yazidi Affiliation | Unknown | + + + | Race | White | + + + | Ethnic Group | Not or | + + + Author + + + | Author | [facility] | | | and [place] | + + + | Organization | [facility] | | | [...] Team Providers + +------+ + | Care Manager Life Name | Role | Phone | + +------+ + | Eric Jerry NP | PCP | | + +------+ + Encounter Details +--------+ + + + + | Date | Type | Department | Care Team | Description | +--------+ + + + + | 04/03/ | Orders Only | [facility] | Pacheco Munson MD | | | 2018 | | NEPRHOLOGY [place] | [address] [facility] | | | | | [address] | [address] [place], [place] | | | | | [address] [place], [place] | [address] | | | | | [address] | | | | | | [phone] | | | +--------+ + + + [...]
--- OUTSIDE RECORDS SUMMARY | ~2020-03-25 | XMS | Encounter Summary ---
Demographics + + + | Address | [address] | | | [place] [address] | + + + | Home Phone | | + + + | Preferred Language | Unknown | + + + | Marital Status | Single | + + + | Pentecostalism Affiliation | Unknown | + + + | Race | White | + + + | Ethnic Group | Not or | + + + Author + + + | Author | [facility] | | | and [place] | + + + | Organization | [facility] | | | and [...] Team Providers + +------+ + | Care Noteman Name | Role | Phone | + +------+ + | Eric Jerry NP | PCP | | + +------+ + Encounter Details +--------+ + + + + | Date | Type | Department | Care Team | Description | +--------+ + + + + | 11/05/ | Orders Only | [facility] | Conversion | | | 2019 | | CONVERSION DEP [address] | Transaction, | | | | | [address] | Provider Unknown | | | | | [place] | [phone] | | | | | [address] | | | | | | [phone] | | | +--------+ + + + [...]
--- OUTSIDE RECORDS SUMMARY | ~2020-03-25 | XMS | Encounter Summary ---
Demographics + + + | Address | [address] | | | [place] [address] | + + + | Home Phone | | + + + | Preferred Language | Unknown | + + + | Marital Status | Single | + + + | Confucianist Affiliation | Unknown | + + + | Race | White | + + + | Ethnic Group | Not or | + + + Author + + + | Author | [facility] | | | and [place] | + + + | Organization | [facility] | | | and [place] | + + + | Address | Unknown | + + + | Phone | Unavailable | + + + Support + + +---------+ + | Name | Relationship | Address | Phone | + + +---------+ + | Shankar Devries | ECON | Unknown | | + + +---------+ + Care Team Providers + +------+ + | Care Sand Worker Name | Role | Phone | + +------+ + PCP | Unavailable | + +------+ + Encounter Details +--------+ + + + + | Date | Type | Department | Care Team | Description | +--------+ + + + + | 03/12/ | Hospital | [facility] | Asif Buckley MD | | | 2013 | Encounter | [facility] | [address] [facility] | | | | | [address] [facility] | [address] [place], | | | | | [place] | [place] [address] | | | | | [address] | [phone] | | | | | [phone] | | | +--------+ + + + [...] + + documented as of this encounter H&P Asif Dooley MD - 03/12/2013 1:38 PM PDT H&P by Asif Buckley MD at 03/12/13 5008 Author: Asif Buckley MD Service: (none) Author Type: Physician Filed: 03/12/13 6365 Date of Service: 03/12/13 0079 Status: Signed Bridge Inspector: Asif Buckley MD (Physician) [facility] Service: Urology Admission History & Physical Date of Admission: 03/12/2013 Requesting Physician: Reason for Admission: Bladder stones History Obtained From: patient CHIEF COMPLAINT: As above HISTORY OF PRESENT ILLNESS The patient is a 62 y.o. male with significant past medical history of Bladder stones who presents with Hematuria and recurrent UTI. Noted to have bladder stones during a hematuria work up. Has had difficulty monitoring his blood pressure in the recent past and has had to defer his surgery due to it. REVIEW OF SYSTEMS Negative except for pertinent items noted in HPI. Past Medical History Diagnosis Date Hypertension History reviewed. No pertinent past surgical history. Immunizations: Influenza: Not indicated Pneumoccocal: Not indicated No Known Allergies Prescriptions prior to admission Medication Sig Dispense Refill ferrous sulfate tablet Take 1 tablet by mouth daily with breakfast. One tablet contains 65 mg elemental iron (324-325 mg ferrous sulfate) hydrochlorothiazide (HYDRODIURIL) 25 MG tablet Take 25 mg by mouth daily. lisinopril (PRINIVIL,ZESTRIL) 20 MG tablet Take 20 mg by mouth daily. metoclopramide (REGLAN) 10 MG tablet Take 10 mg by mouth 4 (four) times daily before me als and nightly. metoprolol (TOPROL-XL) 100 MG 24 hr tablet Take 100 mg by mouth 2 (two) times daily. spironolactone (ALDACTONE) 50 MG tablet Take 25 mg by mouth 2 (two) times daily. tamsulosin (FLOMAX) 0.4 MG CAPS Take 0.8 mg by mouth daily. aspirin 81 MG EC tablet Take 81 mg by mouth daily. cephALEXin (KEFLEX) 500 MG capsule Take 500 mg by mouth 4 (four) times daily. ondansetron (ZOFRAN) 4 MG tablet Take 4 mg by mouth 4 (four) times daily. History reviewed. No pertinent family history. History Social History Marital Status: Single Spouse Name: N/A Number of Children: N/A Years of Education: N/A Occupational History Not on file. Social History Main Topics Smoking status: Former Smoker -- 2.0 packs/day for 10 years Smokeless tobacco: Never Used Alcohol Use: No Drug Use: No Sexually Active: Other Topics Concern Not on file Social History Narrative No narrative on file PHYSICAL EXAM Vital Signs: BP 150/84 | Pulse 83 | Temp 98.1 F (36.7 C) (Skin) | Resp 17 | Ht 1.829 m (6') | Wt 113 .5 kg (250 lb 3.6 oz) | BMI 33.94 kg/m2 | SpO2 99% General appearance: alert, appears stated age and cooperative Back: symmetric, no curvature. ROM normal. No CVA tenderness. Lungs: clear to auscultation bilaterally Heart: regular rate and rhythm, S1, S2 normal, no murmur, click, rub or gallop Abdomen: soft, non-tender; bowel sounds normal; no masses, no organomegaly Male genitalia: penis: no lesions or discharge. testes: no masses or tenderness. no hernias Neurologic: Grossly normal DATA Medical Record Review: reviewed PROBLEM LIST Active Problems: * No active hospital problems. * ASSESSMENT & PLAN 1. Reviewed options. 2. Planned for laser lithotripsy of bladder stones. Risks and benefits discussed and he karan cts to proceed. Disposition: stable Code Status: No Order Primary Care Physician: BRANDON BUCKLEY MD 03/12/2013 documente d in this encounter Miscellaneous Notes Op Note - Asif Buckley MD - 03/12/2013 2:47 PM PDTFormatting of this note might be diff erent from the original. Op Note by Asif Buckley MD at 03/12/13 0175 Author: Asif Buckley MD Service: (none) Author Type: Physician Filed: 03/19/13 2652 Date of Service: 03/12/13 2242 Status: Signed Bridge Inspector: Asif Buckley MD (Physician) Related Notes: Original Note by Asif Buckley MD (Physician) filed at 03/12/13 3973 [facility] Service: Urology Operative Note Pre-operative Diagnosis: 1. Bladder stones 2. Hematuria Post-operative Diagnosis: Same Procedure(s): Cysto and laser lithotripsy of bladder stones and Castellano 22 Fr Surgeon: ASIF BUCKLEY MD Space Physicist(s): n/a Anesthesia: General LMA Estimated Blood Loss: Less Than 10 ml (Minimal) Other: Not applicable Indications: See pre-operative history and physical. Findings: 1. Urethra: no evidence of tumors, stones, foreign bodies or diverticula 2. Bladder: single ureteral orifices noted bilaterally with no evidence of tumors, foreig n bodies or diverticula; presence of multiple stones noted 3. Bilobar prostatic hypertrophy Complications: none Description of Procedure: PROCEDURE The patient was identified and taken to the operating room and laid in the supine position. After adequate anesthesia had been achieved, he was converted to the lithotomy position and prepped and draped in the usual sterile fashion. Next, using a 21-Martiniquais cystoscopic sheath , video camera, light and water, panendoscopy was performed and the above findings were note d. Bladder stones were noted and photographs taken. Using a 1000 micron holmium laser fiber at a setting of 10 and 1000, laser lithotripsy of the stones was performed. After adequate f ragmentation had been obtained, the stones were evacuated using an Elecar evacuator and sent for analysis. I elected to place a Castlelano catheter and a 22-Martiniquais 2-way Castellano catheter was p laced with return of fluid. The Castellano balloon was inflated and connected to a drainage bag. The procedure was then terminated. The patient was recovered and taken to the recovery room in stable condition. The patient tolerated the procedure well and was stable postoperatively . Condition: Stable ASIF BUCKLYE MD 03/12/2013 documente d in this encounter Plan of Treatment Not on filedocumented as of this encounter Procedures + +--------+ + + + | Procedure Name | Priori | Date/Time | Associated Diagnosis | Comments | | | ty | | | | + +--------+ + + + | CALCULI ANALYSIS | Routin | 03/12/2013 | | Results for this | | | e | 2:36 PM | | procedure are in the | | | | PDT | | results section. | + +--------+ + + + | TISSUE REQUEST FOR | Routin | 03/12/2013 | | Results for this | | PATHOLOGY (NON-ORD) | e | 12:00 AM | | procedure are in the | | | | PDT | | results section. | + +--------+ + + + documented in this encounter Results Calculi Analysis (03/12/2013 2:36 PM PDT) + + | Specimen | + + | | + + + + + | Narrative | Performed At | + + + | NIDUS NOT OBSERVED | EXTERNAL LAB | | Testing performed at [facility], [address], [address] | | | [place] [address] COMPONENT 1 SEE | | | BELOW CALCIUM OXALATE DIHYDRATE (WEDDELLITE) 65% CARBONATE APATITE | | | (DAHLLITE) 35% Testing performed at [facility], [address] | | [address], [place] [address] STONE WEIGHT | | | [phone] Testing performed at [facility] | | | Formerly [facility], [address], [place] [address] | | + + + + +---------+ + + | Performing | Address | City/State/Zipcode | Phone Number | | Organization | | | | + +---------+ + + | EXTERNAL LAB | | | | + +---------+ + + Tissue Request For Pathology (03/12/2013 12:00 AM PDT) + + | Specimen | + + | | + + + + + | Narrative | Performed At | + + + | CASE: [id number] PATIENT: SHANKAR JACOBADDEN Surgical Pathology | EXTERNAL LAB | | Report PATHOLOGIC DIAGNOSIS: CALCULI IDENTIFIED. THE SPECIMEN | | | WILL BE SENT TO AN OUTSIDE FACILITY FOR FURTHER CHEMICAL ANALYSIS. | | | CLINICAL HISTORY: 03/12/2013 at 1436 H. Bladder stones. | | | GROSS DESCRIPTION: One specimen is received in one container, | | | labeled with the patient's name: A. Received fresh designated | | | "bladder stones", consists of multiple yellow-cooley firm stones that | | | measure 1.6 x 0.9 x 0.5 cm in aggregate. The specimen is submitted | | | for gross examination only. FM This report has been prepared | | | using a voice recognition system. The report was reviewed for | | | accuracy, however, sound-alike word errors, addition and/or deletions | | | may occur. If there is any question about this report please contact | | | the originating pathologist. Kevin Haque MD | | | Electronically signed Mar 14, 2013 9:16:43AM | | + + + + +---------+ + + | Performing | Address | City/State/Zipcode | Phone Number | | Organization | | | | + +---------+ + + | EXTERNAL LAB | | | | + +---------+ + + documented in this encounter Visit Diagnoses Not on filedocumented in this encounter
--- OUTSIDE RECORDS SUMMARY | ~2020-03-25 | XMS | Encounter Summary ---
Demographics + + + | Address | [address] | | | [place] [address] | + + + | Home Phone | | + + + | Preferred Language | Unknown | + + + | Marital Status | Single | + + + | Methodist Affiliation | Unknown | + + + | Race | White | + + + | Ethnic Group | Not or | + + + Author + + + | Author | [facility] | | | and [place] | + + + | Organization | [facility] | | | [...] Team Providers + +------+ + | Care Lieutenant/Deputy Name | Role | Phone | + +------+ + | Eric Jerry NP | PCP | | + +------+ + Encounter Details +--------+---------+ + + + | Date | Type | Department | Care Team | Description | +--------+---------+ + + + | 02/23/ | Office | [facility] | Pacheco Munson MD | CKD (chronic kidney | | 2020 | Visit | NEPHROLOGY [place] | [address] [place] | disease), stage III | | | | [address] | [address] [place], [place] | (Primary Dx); | | | | [address] | [address] | Essential (primary) | | | | [place], [place] | | hypertension; | | | | [phone] | | Secondary | | | | [phone] | | hyperparathyroidism | | | | | | (HCC); Class 1 | | | | | | obesity due to | | | | | | excess calories | | | | | | without serious | | | | | | comorbidity with | | | | | | body mass index | | | | | | (BMI) of 32.0 to | | | | | | 32.9 in adult; | | | | | | Persistent | | | | | | proteinuria; | | | | | | Bilateral leg edema; | | | | | | Hypercalcemia; | | | | | | Hypocitraturia; | | | | | | Hypomagnesuria | +--------+---------+ + + + Social History [...] + + + | Blood Pressure | 188/120 | 02/24/2020 9:49 AM | | | | | PDT | | + + + + + | Pulse | 88 | 02/24/2020 9:49 AM | | | | | PDT | | + + + + + [...] + + + + | Weight | 112.4 kg (247 lb | 02/24/2020 9:49 AM | | | | 12.8 oz) | PDT | | + + + + + | Height | 185.4 cm (6' 1") | 02/24/2020 9:49 AM | | | | | PDT | | + + + + + | Body Mass Index | 32.69 | 02/24/2020 9:49 AM | | | | | PDT | | + + + + + documented in this encounter Patient Instructions Patient Instructions Pacheco Munson MD - 02/24/2020 10:00 AM PDTDiscussions/Recommendations : I discussed today with Mr. Wise [...] all kinds of NSAIDs for analgesia. Also: He will call us back with the meds he's taking & the ones he ran out of. I will not change any of his vasoactive meds today. I again asked him to drink 4-6 oz of pure lemon or tuscarora juice sweetened & diluted to his taste throughout the day. I again sent him for a parathyroid scan (nuclear medicine), as his hypercalcemia & his h yperparathyroidism are out of proportion to his CKD (3rd such request). He will bring me back his home BP charts if they fall outside of the optimal provided ra nge. At that time, I will decide whether any changes to his vasoactive regimen are warranted . I advised him to exercise regularly but safely & to try to lose weight methodically. Discussed to avoid alcohol and caffeine. Patient has expressed understanding of today's instructions, all questions have been ans wered to their satisfaction and written instructions have been provided. He will F/U with your office regularly. He will have RFP, CBC, intact PTH, Urine total boaswke-ob-sakqulnsei ratio done before h e comes back in 6 months. T documented in this encounter Progress Notes Pacheco Munson MD - 02/24/2020 10:00 AM PDT Patient Active Problem List Diagnosis Date Noted [...] DAY, Dis p: 60 tablet, Rfl: 0 metoprolol succinate (TOPROL-XL) 100 mg ER tablet, [...] MOUTH TWICE A DAY, Disp: 180 caps sergei, Rfl: 3 He tells me he "ran out of some medications" & he's "not sure which ones". Physical Exam: BP (!) 188/120 | Pulse 88 | Ht 1.854 m (6' 1") | Wt 112.4 kg (247 lb 12.8 oz) | BMI 32. 69 kg/m General appearance: Pleasant, obese, not in [...] normal. Lab Results Component Value Date HGB 15.7 02/20/2020 HGB 16.2 10/22/2018 NA 143 02/20/2020 K 3.9 02/20/2020 CL 108 02/20/2020 CO2 24 02/20/2020 BUN 31 (A) 02/20/2020 CREA 1.84 (A) 02/20/2020 CALCIUM 10.4 (A) 02/20/2020 ALBUMIN 4.2 08/14/2019 EGFR 36.0 (A) 02/20/2020 PTH 323.6 (A) 10/22/2018 LABPROT 1,013.7 (A) 02/20/2020 [id number] 35 11/09/2016 Protein 6.5 Range: 6.0-8.0 Albumin 4.32 Range: 3.2-5.5 Alpha 1 0.21 Range: 0.1-0.32 Alpha 2 0.66 Range: 0.54-0.90 Beta 0.78 Range: 0.60-1.09 Gamma 0.52 Range: 0.36-1.8 Immunoglobulin G 578 Range: 664-1411 Immunoglobulin A 245 Range: 66-433 Immunoglobulin M 31 Range: 31-214 Specimen Collected: 11/11/16 12:36 Last Resulted: 11/11/16 12:40 Assessment: Mr. Wise is a 69 y.o. male patient with history of uncontrolled [...] all kinds of NSAIDs for analgesia. Also: He will call us back with the meds he's taking & the ones he ran out of. I will not change any of his vasoactive meds today. I again asked him to drink 4-6 oz of pure lemon or tuscarora juice sweetened & diluted to his taste throughout the day. I again sent him for a parathyroid scan (nuclear medicine), as his hypercalcemia & his h yperparathyroidism are out of proportion to his CKD (3rd such request). He will bring me back his home BP charts if they fall outside of the optimal provided ra nge. At that time, I will decide whether any changes to his vasoactive regimen are warranted . I advised him to exercise regularly but safely & to try to lose weight methodically. Discussed to avoid alcohol and caffeine. Patient has expressed understanding of today's instructions, all questions have been ans wered to their satisfaction and written instructions have been provided. He will F/U with your office regularly. He will have RFP, CBC, intact PTH, Urine total kzgstsy-ez-qfohxxusom ratio done before h gerda comes back in 6 months. I spent [...] or concerns. Truly yours, Pacheco Munson MD FAC FAKAVYA documented in this enco unter Plan of Treatment Not on filedocumented as of this encounter Visit Diagnoses + + | Diagnosis | + + | CKD (chronic kidney disease), stage III - Primary | + + | Essential (primary) hypertension Unspecified essential hypertension | + + | Secondary hyperparathyroidism (HCC) Secondary hyperparathyroidism (of renal origin) | + + | Class 1 obesity due to excess calories without serious comorbidity with body mass | | index (BMI) of 32.0 to 32.9 in adult | + + | Persistent proteinuria Proteinuria | + + | Bilateral leg edema Edema | + + | Hypercalcemia | + + | Hypocitraturia Other nonspecific finding on examination of urine | + + | Hypomagnesuria | + + documented in this encounter
--- OUTSIDE RECORDS SUMMARY | ~2020-03-25 | XMS | Encounter Summary ---
Demographics + + + | Address | [address] | | | [place] [address] | + + + | Home Phone | | + + + | Preferred Language | Unknown | + + + | Marital Status | Single | + + + | Religion Affiliation | Unknown | + + + | Race | White | + + + | Ethnic Group | Not or | + + + Author + + + | Author | [facility] | | | and [place] | + + + | Organization | [facility] | | | and [...] Team Providers + +------+ + | Care Prison Psychiatrist Name | Role | Phone | + +------+ + PCP | Unavailable | + +------+ + Encounter Details +--------+ + + + + | Date | Type | Department | Care Team | Description | +--------+ + + + + | 01/16/ | Orders Only | [facility] | Pacheco Munson MD | | | 2018 | | [address] | [address] [address] | | | | | [place], [place] | [address] [place] | | | | | [address] | [address] | | | | | [phone] | | | +--------+ + + + [...] + | CALCULI ANALYSIS | Routin | 01/16/2018 | | Results for this | | | e | 9:19 AM | | procedure are in the | | | | PDT | | results section. | + +--------+ + + + documented in this encounter Results Calculi Analysis (01/16/2018 9:19 AM PDT) + + + + + + | Component | Value | Ref Range | Performed | Pathologist | | | | | At | Signature | + + + + + + | Result | SEPARATE REPORT TO | | EXTERNAL | | | | FOLLOW | | LAB | | + + + + + + + + | Specimen | + + | | + + + +---------+ + + | Performing | Address | City/State/Zipcode | Phone Number | | Organization | | | | + +---------+ + + | EXTERNAL LAB | | | | + +---------+ + + documented in this encounter Visit Diagnoses Not on filedocumented in this encounter"
--- OUTSIDE RECORDS SUMMARY | ~2020-03-25 | XMS | Encounter Summary ---
Demographics + + + | Address | [address] | | | [place] [address] | + + + | Home Phone [...] Author + + + | Author | [facility] | | | and [place] | + + + | Organization | [facility] | | | [...] Team Providers + +------+ + | Care Workforce Planner Name | Role | Phone | + +------+ + | Eric Jerry NP | PCP | | + +------+ + Encounter Details +--------+ + + + + | Date | Type | Department | Care Team | Description | +--------+ + + + + | 04/02/ | Orders Only | [facility] | Conversion | | | 2018 | | CONVERSION DEP [address] | Transaction, | | | | | [address] | Provider Unknown | | | | | [place] | [phone] | | | | | [address] | | | | | | [phone] | | | +--------+ + + + [...]
--- OUTSIDE RECORDS SUMMARY | ~2020-03-25 | XMS | Encounter Summary ---
Demographics + + + | Address | [address] | | | [place] [address] | + + + | Home Phone | | + + + | Preferred Language | Unknown | + + + | Marital Status | Single | + + + | Anglican Affiliation | Unknown | + + + | Race | White | + + + | Ethnic Group | Not or | + + + Author + + + | Author | [facility] | | | and [place] | + [...] Team Providers + +------+ + | Care Heating And Refrigeration Inspector Name | Role | Phone | + +------+ + | Lavon Jennings MD | PCP | | + +------+ + Encounter Details +--------+ + + + + | Date | Type | Department | Care Team | Description | +--------+ + + + + | 03/25/ | Orders Only | [facility] | Conversion | | | 2012 | | NEPHROLOGY [facility] | Transaction, | | | | | [address] [place] | Provider Unknown | | | | | [address] [place] | [phone] | | | | | [address] | | | | | | [phone] | | | +--------+ + + + [...] | + +--------+ + + + | BASIC METABOLIC | Routin | 03/04/2014 | | Results for this | | PANEL | e | 12:00 AM | | procedure are in the | | | | PDT | | results section. | + +--------+ + + + | EXTERNAL LAB: CBC | Routin | 08/26/2013 | | Results for this | | | e | 12:00 AM | | procedure are in the | | | | PST | | results section. | + +--------+ + + + | URINALYSIS WITH | Routin | 08/26/2013 | | Results for this | | MICROSCOPIC WITH | e | 12:00 AM | | procedure are in the | | CULTURE IF INDICATED | | PST | | results section. | + +--------+ + + + | MICROALBUMIN/CREATIN | Routin | 08/26/2013 | | Results for this | | INE RATIO, URINE | e | 12:00 AM | | procedure are in the | | TEST | | PST | | results section. | + +--------+ + + + | CREATININE, URINE, | Routin | 08/26/2013 | | Results for this | | RANDOM | e | 12:00 AM | | procedure are in the | | | | PST | | results section. | + +--------+ + + + | MAGNESIUM | Routin | 08/26/2013 | | Results for this | | | e | 12:00 AM | | procedure are in the | | | | PST | | results section. | + +--------+ + + + | RENAL FUNCTION PANEL | Routin | 08/26/2013 | | Results for this | | | e | 12:00 AM | | procedure are in the | | | | PST | | results section. | + +--------+ + + + | CULTURE, URINE | Routin | 04/05/2013 | | Results for this | | | e | 12:00 AM | | procedure are in the | | | | PDT | | results section. | + +--------+ + + + | CULTURE, URINE | Routin | 04/05/2013 | | Results for this | | | e | 12:00 AM | | procedure are in the | | | | PDT | | results section. | + +--------+ + + + | CULTURE, URINE | Routin | 03/25/2013 | | Results for this | | | e | 12:00 AM | | procedure are in the | | | | PDT | | results section. | + +--------+ + + + | CULTURE, URINE | Routin | 03/25/2013 | | Results for this | | | e | 12:00 AM | | procedure are in the | | | | PDT | | results section. | + +--------+ + + + | CULTURE, URINE | Routin | 03/25/2013 | | Results for this | | | e | 12:00 AM | | procedure are in the | | | | PDT | | results section. | + +--------+ + + + documented in this encounter Results Basic Metabolic Panel (03/04/2014 12:00 AM PDT) + + + + + + | Component | Value | Ref Range | Performed | Pathologist | | | | | At | Signature | + + + + + + | Glucose, | 104 (A) | 70 - 100 mg/dL | EXTERNAL | | | Fasting | | | LAB | | + + + + + + | BUN | 47 (A) | 6 - 23 mg/dL | EXTERNAL | | | | | | LAB | | + + + + + + | Creatinine | 2.14 (A) | 0.70 - 1.25 | EXTERNAL | | | | | mg/dL | LAB | | + + + + + + | BUN/Creatin | 22.0 | 6.0 - 28.6 | EXTERNAL | | | ine Ratio | | | LAB | | + + + + + + | Calcium | 9.8 | 8.4 - 10.2 | EXTERNAL | | | | | mg/dL | LAB | | + + + + + + | Na | 137 | 132 - 143 | EXTERNAL | | | | | mmol/L | LAB | | + + + + + + | K | 4.6 | 3.6 - 5.1 | EXTERNAL | | | | | mmol/L | LAB | | + + + + + + | Cl | 105 | 95 - 112 mmol/L | EXTERNAL | | | | | | LAB | | + + + + + + | CO2 | 21 | 19 - 31 mmol/L | EXTERNAL | | | | | | LAB | | + + + + + + | Anion Gap | 15.6 | 7 - 21 mmol/L | EXTERNAL | | | | | | LAB | | + + + + + + | Estimated | 31 | mg/dL | EXTERNAL | | | GFR [...] | | | + +---------+ + + Urinalysis with Microscopic with Culture if Indicated (08/26/2013 12:00 AM PST) + + + + + + [...] + + + + + + | Spec Grav, | 1.013 | | EXTERNAL | | | Fluid | | | LAB | | + + + + + + | Leukocyte | Negative | | EXTERNAL | | | Esterase, | | | LAB | | | Urine | | | | | + + + + + + | Nitrite, | Negative | | EXTERNAL | | | Urine | | | LAB | | + + + + + + | Urobilinoge | Normal | | EXTERNAL | | | n, Urine | | | LAB | | + + + + + + | Total | Negative | | EXTERNAL | | | Protein | | | LAB | | + + + + + + | pH, Urine | 5 | | EXTERNAL | | | | | | LAB | | + + + + + + | Blood, | Negative | | EXTERNAL | | [...] + + + + + + | WBC, UA | | | EXTERNAL | | | | | | LAB | | + + + + + + | RBC, UA | | | EXTERNAL | | | | | | LAB | | + + + + + + | Epithelial | | | EXTERNAL | | | Cells | | | LAB | | + + + + + + | Bacteria, | | | EXTERNAL | | | UA | | | LAB | | + + + + + + | HYALINE | | | EXTERNAL | | | CASTS UA | | | LAB | | + + + + + + + + | Specimen | + + | | + + + +---------+ + + | Performing | Address | City/State/Zipcode | Phone Number | | Organization | | | | + +---------+ + + | EXTERNAL LAB | | | | + +---------+ + + Microalbumin/Creatinine Ratio, Urine (08/26/2013 12:00 AM PST) + +-------+ + + + | Component | Value | Ref Range | Performed | Pathologist | | | | | At | Signature | + +-------+ + + + | ALBUMIN/CRE | 16.1 | | EXTERNAL | | | ATININE | | | LAB | | | RATIO.URINE | | | | | | .ORD.MG/G | | | | | | (HEATHER) | | | | | | | | | | | | | | | | | + +-------+ + + + + + | Specimen | + + | Urine specimen | | (specimen) | + + + +---------+ + + | Performing | Address | City/State/Zipcode | Phone Number | | Organization | | | | + +---------+ + + | EXTERNAL LAB | | | | + +---------+ + + Creatinine, Urine, Random (08/26/2013 12:00 AM PST) + +-------+ + + + | Component | Value | Ref Range | Performed | Pathologist | | | | | At | Signature | + +-------+ + + + | Creatinine, | 174 | | EXTERNAL | | | 24H Ur | | | LAB | | + [...] + +---------+ + + External Lab: CBC (08/26/2013 12:00 AM PST) + +-------+ + + + | Component | Value | Ref Range | Performed | Pathologist | | | | | At | Signature | + +-------+ + + + | WBC | 7.1 | 10 | EXTERNAL | | | | | | LAB | | + +-------+ + + + | Non- | 4.7 | 10 | EXTERNAL | | | Red Blood | | | LAB | | | Cells | | | | | | Counted | | | | | + +-------+ + + + | Hemoglobin | 13.7 | g/dL | EXTERNAL | | | | | | LAB | | + +-------+ + + + | Hematocrit, | 41.1 | % | EXTERNAL | | | POC | | | LAB | | + +-------+ + + + | MCV | 90.0 | fL | EXTERNAL | | | | | | LAB | | + +-------+ + + + | MCH | 30 | pg | EXTERNAL | | | | | | LAB | | + +-------+ + + + | MCHC | 33 | g/dL | EXTERNAL | | | | | | LAB | | + +-------+ + + + | Platelet | 246 | K/ L | EXTERNAL | | | Count | | | LAB | | | Plasma | | | | | + +-------+ + + + | RDW-CV | 12.6 | % | EXTERNAL | | | | | | LAB | | + +-------+ + + + | MPV | | fL | EXTERNAL | | | | | | LAB | | + +-------+ + + + | Differentia | Auto | | EXTERNAL | | | l Type | | | LAB | | + +-------+ + + + | % Segmented | 68.4 | % | EXTERNAL | | | | | | LAB | | | Neutrophils | | | | | + +-------+ + + + | % | 18.5 | % | EXTERNAL | | | Lymphocytes | | | LAB | | + +-------+ + + + | % Monocytes | 9.2 | % | EXTERNAL | | | | | | LAB | | + +-------+ + + + | % | 3.2 | % | EXTERNAL | | | Eosinophils | | | LAB | | + +-------+ + + + | % Basophils | 0.7 | % | EXTERNAL | | | [...] | | + +---------+ + + Magnesium (08/26/2013 12:00 AM PST) + +-------+ + + + | Component | Value | Ref Range | Performed | Pathologist | | | | | At | Signature | + +-------+ + + + | Magnesium | 1.9 | mg/dL | EXTERNAL | | | | [...] + +---------+ + + Renal Function Panel (08/26/2013 12:00 AM PST) + +-------+ + + + | Component | Value | Ref Range | Performed | Pathologist | | | | | At | Signature | + +-------+ + + + | Glucose, | 83 | mg/dL | EXTERNAL | | | Fasting | | | LAB | | + +-------+ + + + | BUN | 35 | mg/dL | EXTERNAL | | | | | | LAB | | + +-------+ + + + | Creatinine | 1.77 | mg/dL | EXTERNAL | | | | | | LAB | | + +-------+ + + + | PHOSPHORUS | | mg/dL | EXTERNAL | | | | | | LAB | | + +-------+ + + + | Albumin | 4.5 | | EXTERNAL | | | | | | LAB | | + +-------+ + + + | Na | 140 | mmol/L | EXTERNAL | | | | | | LAB | | + +-------+ + + + | K | 4.4 | mmol/L | EXTERNAL | | | | | | LAB | | + +-------+ + + + | Cl | 106 | mmol/L | EXTERNAL | | | | | | LAB | | + +-------+ + + + | CO2 | 24 | mmol/L | EXTERNAL | | | | | | LAB | | + +-------+ + + + | Anion Gap | 14.4 | mmol/L | EXTERNAL | | | | | | LAB | | + +-------+ + + + | eGFR, | | | EXTERNAL | | | non- | | | LAB | | | [place] | | | | | + +-------+ + + + | Phosphorus, | 2.4 | | EXTERNAL | | | Inorganic | | | LAB | | + +-------+ + + + | BUN/Creatin | 19.8 | | EXTERNAL | | | ine Ratio | | | LAB | | + +-------+ + + + | Calcium | 10.4 | mg/dL | EXTERNAL | | | | | | LAB | | + +-------+ + + + | Estimated | 39 | mg/dL | EXTERNAL | | | GFR [...] | | | + +---------+ + + Culture, Urine (04/05/2013 12:00 AM PDT) + + | Specimen | + + | Urine specimen | | (specimen) | + + + + + | Narrative | Performed At | + + + | Specimen Description Urine CULTURE | EXTERNAL LAB | | No Growth at 18-24 hrs. REPORT | | | STATUS Completed | | + + + + +---------+ + + | Performing | Address | City/State/Zipcode | Phone Number | | Organization | | | | + +---------+ + + | EXTERNAL LAB | | | | + +---------+ + + Culture, Urine (04/05/2013 12:00 AM PDT) + + | Specimen | + + | Urine specimen | | (specimen) | + + + + + | Narrative | Performed At | + + + | Specimen Description urine CULTURE | EXTERNAL LAB | | No Growth at 18-24 hrs. REPORT | | | STATUS Completed | | + + + + +---------+ + + | Performing | Address | City/State/Zipcode | Phone Number | | Organization | | | | + +---------+ + + | EXTERNAL LAB | | | | + +---------+ + + Culture, Urine (03/25/2013 12:00 AM PDT) + + | Specimen | + + | Urine specimen | | (specimen) | + + + + + | Narrative | Performed At | + + + | Specimen Description Urine CULTURE | EXTERNAL LAB | | No Growth at 18-24 hrs. REPORT | | | STATUS Completed | | + + + + +---------+ + + | Performing | Address | City/State/Zipcode | Phone Number | | Organization | | | | + +---------+ + + | EXTERNAL LAB | | | | + +---------+ + + Culture, Urine (03/25/2013 12:00 AM PDT) + + | Specimen | + + | Urine specimen | | (specimen) | + + + + + | Narrative | Performed At | + + + | Specimen Description Urine CULTURE | EXTERNAL LAB | | Probable Contaminants, suggest | | | recollection. OVER 100,000 CFU/ML NON - LACTOSE GUIDE TOUR, | | | IDENTIFCATION AND SUSCEPTABLITY TO FOLLOW REPORT STATUS | | | Completed | | + + + + +---------+ + + | Performing | Address | City/State/Zipcode | Phone Number | | Organization | | | | + +---------+ + + | EXTERNAL LAB | | | | + +---------+ + + Culture, Urine (03/25/2013 12:00 AM PDT) + + | Specimen | + + | Urine specimen | | (specimen) | + + + + + | Narrative | Performed At | + + + | Specimen Description Urine CULTURE | EXTERNAL LAB | | Probable Contaminants, suggest | | | recollection. ISOLATED IDENTIFIED PSEUDOMONAS AERUGINOSA REPORT | | | STATUS Completed | | + + + + +---------+ + + | Performing | Address | City/State/Zipcode | Phone Number | | Organization | | | | + +---------+ + + | EXTERNAL LAB | | | | + +---------+ + + documented in this encounter Visit Diagnoses Not on filedocumented in this encounter"
--- OUTSIDE RECORDS SUMMARY | ~2020-03-25 | XMS | Encounter Summary ---
Demographics + + + | Address | [address] | | | [place] [address] | + + + | Home Phone | | + + + | Preferred Language | Unknown | + + + | Marital Status | Single | + + + | Bahai Affiliation | Unknown | + + + | Race | White | + + + | Ethnic Group | Not or | + + + Author + + + | Author | [facility] | | | and [place] | + + + | Organization | [facility] | | | [...] Team Providers + +------+ + | Care Vessel Slagman Name | Role | Phone | + +------+ + | Eric Jerry LDR RN | PCP | | + +------+ + Reason for Visit +---------+ + | Reason | Comments | +---------+ + | Results | 02/20/20 | +---------+ + Encounter Details +--------+ + + + + | Date | Type | Department | Care Team | Description | +--------+ + + + + | 02/20/ | Documentati | [facility] | Severino, | Results (02/20/20) | | 2020 | on | NEPHROLOGY [place] | [facility] | | | | | [address] | [employer] | | | | | [address] [facility] [place] | | | | | | [address] | | | | | | [phone] | | | +--------+ + + + [...] | CBC NO DIFFERENTIAL | Routin | 02/20/2020 | | Results for this | | | e | | | procedure are in the | | | | | | results section. | + +--------+ + + + | PROTEIN/CREATININE | Routin | 02/20/2020 | | Results for this | | RATIO, URINE | e | | | procedure are in the | | | | | | results section. | + +--------+ + + + | URIC ACID | Routin | 02/20/2020 | | Results for this | | | e | | | procedure are in the | | | | | | results section. | + +--------+ + + + | RENAL FUNCTION PANEL | Routin | 02/20/2020 | | Results for this | | | e | | | procedure are in the | | | | | | results section. | + +--------+ + + + documented in this encounter Results CBC with Manual Differential (02/20/2020) + + + + + + | Component | Value | Ref Range | Performed | Pathologist | | | | | At | Signature | + + + + + + | WBC | 7.4 | 4.5 - 11.0 | | | | | | 10*3/uL | | | + + + + + + | Red Blood | 5.07 | 4.30 - 5.70 | | | | Cells | | M/uL | | | + + + + + + | Hemoglobin | 15.7 | 13.5 - 18.0 | | | + + + + + + | Hematocrit, | 46.0 | 41.0 - 50.0 % | | | | POC | | | | | + + + + + + | MCV | 90.5 | 81.0 - 99.0 fL | | | + + + + + + | MCH | 31.0 | 27.0 - 33.0 pg | | | + + + + + + | MCHC | 34.0 | 30.0 - 36.0 | | | | | | g/dL | | | + + + + + + | Platelet | 198 | 140 - 440 | | | | Count | | | | | | Plasma | | | | | + + + + + + | RDW-SD | 13.4 | 10.5 - 15.0 | | | + + + + + + | % | 75.6 | 39.0 - 80.0 % | | | | Neutrophils | | | | | + + + + + + | % | 13.9 (A) | 24.0 - 44.0 % | | | | Lymphocytes | | | | | + + + + + + | Monocyte % | 7.3 | 0 - 12 | | | + + + + + + | Eosinophils | 2.4 | 0 - 6 | | | | % | | | | | + + + + + + | Basophils % | 0.8 | 0 - 2 | | | + + + + + + + + | Specimen | + + | Blood | + + Renal Function Panel (02/20/2020) + + + + + + | Component | Value | Ref Range | Performed | Pathologist | | | | | At | Signature | + + + + + + | Na | 143 | 132 - 143 | | | | | | mmol/L | | | + + + + + + | K | 3.9 | 3.6 - 5.1 | | | | | | mmol/L | | | + + + + + + | Cl | 108 | 95 - 112 mmol/L | | | + + + + + + | CO2 | 24 | 19 - 31 mmol/L | | | + + + + + + | Anion Gap | 15 | 7 - 21 mmol/L | | | + + + + + + | Glucose | 94 | 70 - 100 mg/dL | | | + + + + + + | BUN | 31 (A) | 6 - 23 mg/dL | | | + + + + + + | Creatinine | 1.84 (A) | 0.70 - 1.18 | | | | | | mg/dL | | | + + + + + + | Estimated | 36.0 (A) | 60.0 - 140.0 | | | | GFR | | mL/min/1.73m2 | | | + + + + + + | BUN/Creatin | 16.8 | 6.0 - 28.6 | | | | ine Ratio | | | | | + + + + + + | Calcium | 10.4 (A) | 8.5 - 10.3 | | | + + + + + + | PHOSPHORUS | 2.6 | 2.5 - 5.0 | | | + + + + + + + + | Specimen | + + | Blood | + + Protein/Creatinine Ratio, Urine (02/20/2020) + + + + + + | Component | Value | Ref Range | Performed | Pathologist | | | | | At | Signature | + + + + + + | Protein/Cre | 1,013.7 (A) | 0 - 150 | | | | at Ratio | | | | | + + + + + + + + | Specimen | + + | Urine | + + Uric Acid (02/20/2020) + +-------+ + + + | Component | Value | Ref Range | Performed | Pathologist | | | | | At | Signature | + +-------+ + + + | Uric Acid | 6.3 | 4.4 - 7.6 | | | + +-------+ + + + + + | Specimen | + + | Blood | + + documented in this encounter Visit Diagnoses Not on filedocumented in this encounter"
--- OUTSIDE RECORDS SUMMARY | ~2020-03-25 | XMS | Encounter Summary ---
Demographics + + + | Address | [address] | | | [place] [address] | + + + | Home Phone | | + + + | Preferred Language | Unknown | + + + | Marital Status | Single | + + + | Sikh Affiliation | Unknown | + + + [...] Team Providers + +------+ + | Care Assurance Engineer Name | Role | Phone | + +------+ + | Eric Jerry NP | PCP | | + +------+ + Reason for Referral Diagnostic/Screening (Routine) + +--------+ + + + + | Status | Reason | Specialty | Diagnoses / | Referred By | Referred To | | | | | Procedures | Contact | Contact | + +--------+ + + + + | Authorized | | Radiology | Diagnoses | [facility] | [facility] | | | | | Essential | Pacheco Burden MD | Medicine | | | | | (primary) | [address] | [address] | | | | | hypertension | [address] | | | | | Stage 3 | [place], | [place], [place] | | | | | chronic | [place] [address] | [address] | | | | | kidney | Phone: | Phone: | | | | | disease | [phone] | [phone] | | | | | (HCC) | Fax: | Fax: | | | | | Secondary | [phone] | [phone] | | | | | hyperparathy | | | | | | | roidism | | | | | | | (HCC) | | | | | | | Persistent | | | | | | | proteinuria | | | | | | | Procedures | | | | | | | NM | | | | | | | Parathyroid | | | | | | | Scan | | | + +--------+ + + + + Encounter Details +--------+ + + + + | Date | Type | Department | Care Team | Description | +--------+ + + + + | 08/24/ | Orders Only | [facility] | Pacheco Munson MD | Essential (primary) | | 2020 | | NEPHROLOGY [place] | [address] [place] | hypertension | | | | [address] [place] | [address] [place], [place] | (Primary Dx); CKD | | | | [address] [place], [place] | [address] | (chronic kidney | | | | [address] | | disease), stage III; | | | | [phone] | | Secondary | | | | | | hyperparathyroidism | | | | | | (HCC); Persistent | | | | | | proteinuria | +--------+ + + + + Social [...] of this encounter Plan of Treatment + +---------+--------+ + + | Name | Type | Priori | Associated Diagnoses | Order Schedule | | | | ty | | | + +---------+--------+ + + | NM Parathyroid Scan | Imaging | Routin | Essential | Expected: | | | | e | (primary) | 02/24/2020, Expires: | | | | | hypertension CKD | 02/23/2021 | | | | | (chronic kidney | | | | | | disease), stage III | | | | | | Secondary | | | | | | hyperparathyroidism | | | | | | (HCC) Persistent | | | | | | proteinuria | | + +---------+--------+ + + | Renal Function Panel | Lab | Routin | Essential | Expected: | | | | e | (primary) | 08/26/2020, Expires: | | | | | hypertension CKD | 02/23/2021 | | | | | (chronic kidney | | | | | | disease), stage III | | | | | | Secondary | | | | | | hyperparathyroidism | | | | | | (HCC) Persistent | | | | | | proteinuria | | + +---------+--------+ + + | CBC with | Lab | Routin | Essential | Expected: | | Differential | | e | (primary) | 08/26/2020, Expires: | | | | | hypertension CKD | 02/23/2021 | | | | | (chronic kidney | | | | | | disease), stage III | | | | | | Secondary | | | | | | hyperparathyroidism | | | | | | ([facility]) Persistent | | | | | | proteinuria | | + +---------+--------+ + + | Parathyroid Hormone, | Lab | Routin | Essential | Expected: | | Intact | | e | (primary) | 08/26/2020, Expires: | | | | | hypertension CKD | 02/23/2021 | | | | | (chronic kidney | | | | | | disease), stage III | | | | | | Secondary | | | | | | hyperparathyroidism | | | | | | ([facility]) Persistent | | | | | | proteinuria | | + +---------+--------+ + + | Protein/Creatinine | Lab | Routin | Essential | Expected: | | Ratio, Urine | | e | (primary) | 08/26/2020, Expires: | | | | | hypertension CKD | 02/23/2021 | | | | | (chronic kidney | | | | | | disease), stage III | | | | | | Secondary | | | | | | hyperparathyroidism | | | | | | ([facility]) Persistent | | | | | | proteinuria | | + +---------+--------+ + + documented as of this encounter Visit Diagnoses + + | Diagnosis | + + | Essential (primary) hypertension - Primary Unspecified essential hypertension | + + | CKD (chronic kidney disease), stage III | + + | Secondary hyperparathyroidism (HCC) Secondary hyperparathyroidism (of renal origin) | + + | Persistent proteinuria Proteinuria | + + documented in this encounter"
--- OUTSIDE RECORDS SUMMARY | ~2020-03-25 | XMS | Encounter Summary ---
Demographics + + + | Address | [address] | | | [place] [address] | + + + | Home Phone | | + + + | Preferred Language | Unknown | + + + | Marital Status | Single | + + + | Jewish Affiliation | Unknown | + + + | Race | White | + + + | Ethnic Group | Not or | + + + Author + + + | Author | [facility] | | | and [place] | + + + | Organization | [facility] | | | [...] Team Providers + +------+ + | Care Scene And Lighting Design Lecturer Name | Role | Phone | + +------+ + PCP | Unavailable | + +------+ + Encounter Details +--------+ + + + + | Date | Type | Department | Care Team | Description | +--------+ + + + + | 10/22/ | Orders Only | [facility] | Pacheco Munson MD | | | 2019 | | NEPHROLOGY [place] | [address] [place] | | | | | [address] [place] | [address] [place] | | | | | [address] [place] | [id number] | | | | | [address] | | | | | | [phone] | | | +--------+ + + + [...] | EXTERNAL LAB: CBC | Routin | 10/22/2018 | | Results for this | | | e | 11:55 AM | | procedure are in the | | | | PDT | | results section. | + +--------+ + + + | PROTEIN/CREATININE | Routin | 10/22/2018 | | Results for this | | RATIO, URINE | e | 11:55 AM | | procedure are in the | | | | PDT | | results section. | + +--------+ + + + | PARATHYROID HORMONE, | Routin | 10/22/2018 | | Results for this | | INTACT | e | 11:55 AM | | procedure are in the | | | | PDT | | results section. | + +--------+ + + + | RENAL FUNCTION PANEL | Routin | 10/22/2018 | | Results for this | | | e | 11:55 AM | | procedure are in the | | | | PDT | | results section. | + +--------+ + + + documented in this encounter Results Protein/Creatinine Ratio, Urine (10/22/2018 11:55 AM PDT) + + + + + + | Component | Value | Ref Range | Performed | Pathologist | | | | | At | Signature | + + + + + + | Protein/Cre | 1025.4 (A) | 0 - 150 | EXTERNAL [...] + +---------+ + + External Lab: CBC (10/22/2018 11:55 AM PDT) + + + + + + | Component | Value | Ref Range | Performed | Pathologist | | | | | At | Signature | + + + + + + | WBC | 8.0 | 4.5 - 11.0 10 | EXTERNAL | | | | | | LAB | | + + + + + + | Non- | 5.40 | 4.3 - 5.7 10 | EXTERNAL | | | Red Blood | | | LAB | | | Cells | | | | | | Counted | | | | | + + + + + + | Hemoglobin | 16.2 | 13.5 - 18.0 | EXTERNAL | | | | | g/dL | LAB | | + + + + + + | Hematocrit, | 47.8 | 41 - 50 % | EXTERNAL | | | POC | | | LAB | | + + + + + + | MCV | 88.4 | 81 - 99 fL | EXTERNAL | | | | | | LAB | | + + + + + + | MCH | 30 | 27 - 33 pg | EXTERNAL | | | | | | LAB | | + + + + + + | MCHC | 34 | 30 - 36 g/dL | EXTERNAL | | | | | | LAB | | + + + + + + | Platelet | 200 | 140 - 400 K/ L | EXTERNAL | | | Count | | | LAB | | | Plasma | | | | | + + + + + + | RDW-CV | 13.8 | 10.5 - 15.0 % | EXTERNAL | | | | | | LAB | | + + + + + + | MPV | | fL | EXTERNAL | | | | | | LAB | | + + + + + + | Differentia | | | EXTERNAL | | | l Type | | | LAB | | + + + + + + | % Segmented | 78.4 | 39 - 80 % | EXTERNAL | | | | | | LAB | | | Neutrophils | | | | | + + + + + + | % | 12.4 (A) | 24 - 44 % | EXTERNAL | | | Lymphocytes | | | LAB | | + + + + + + | % Monocytes | 7.2 | 0 - 12 % | EXTERNAL | | | | | | LAB | | + + + + + + | % | 1.6 | 0 - 6 % | EXTERNAL | | | Eosinophils | | | LAB | | + + + + + + | % Basophils | 0.4 | 0 - 2 % | EXTERNAL | | | | | | LAB | | + + + + + + | Absolute | | / L | EXTERNAL | | | Segmented | | | LAB | | | Neutrophils | | | | | + + + + + + | Absolute | | / L | EXTERNAL | | | Lymphocytes | | | LAB | | + + + + + + | Absolute | | / L | EXTERNAL | | | Monocytes | | | LAB | | + + + + + + | Absolute | | / L | EXTERNAL | | | Eosinophils | | | LAB | | + + + + + + | Absolute | | [...] + +---------+ + + Parathyroid Hormone, Intact (10/22/2018 11:55 AM PDT) + + + + + + | Component | Value | Ref Range | Performed | Pathologist | | | | | At | Signature | + + + + + + | PTH INTACT | 323.6 (A) | 15 - 65 pg/mL | [...] + +---------+ + + Renal Function Panel (10/22/2018 11:55 AM PDT) + + + + + [...] + + + + | BUN | 35 (A) | 6 - 23 mg/dL | EXTERNAL | | | | | | LAB | | + + + + + + | Creatinine | 1.95 (A) | 0.70 - 1.18 | EXTERNAL | | | | | mg/dL | LAB | | + + + + + + | PHOSPHORUS | 2.3 (A) | 2.5 - 5.0 mg/dL | EXTERNAL | | | | | | LAB | | + + + + + + | Albumin | 4.4 | 3.5 - 5.0 | EXTERNAL | | | | | | LAB | | + + + + + + | Na | 146 (A) | 132 - 143 | EXTERNAL | | | | | mmol/L | LAB | | + + + + + + | K | 3.8 | 3.6 - 5.1 | EXTERNAL | | | | | mmol/L | LAB | | + + + + + + | Cl | 107 | 95 - 112 mmol/L | EXTERNAL | | | | | | LAB | | + + + + + + | CO2 | 27 | 19 - 31 mmol/L | EXTERNAL | | | | | | LAB | | + + + + + + | Anion Gap | 15.8 | 7 - 21 mmol/L | EXTERNAL | | | | | | LAB | | + + + + + + | eGFR, | | | EXTERNAL | | | non- | | | LAB | | | [place] | | | | | + + + + + + | Phosphorus, | | | EXTERNAL | | | Inorganic | | | LAB | | + + + + + + | BUN/Creatin | 17.9 | 6.0 - 28.6 | EXTERNAL | | | ine Ratio | | | LAB | | + + + + + + | Calcium | 10.5 (A) | 8.5 - 10.3 | EXTERNAL | | | | | mg/dL | LAB | | + + + + + + | Estimated | 34 (A) | 60 - 140 mg/dL | [...]
--- OUTSIDE RECORDS SUMMARY | ~2020-03-25 | XMS | Encounter Summary ---
Demographics + + + | Address | [address] | | | [place] [address] | + + + | Home Phone [...] + + + | Author | [facility] | | | and [place] | + + + | Organization | [facility] | | | [...] Team Providers + +------+ + | Care Vice Chancellor Name | Role | Phone | + +------+ + | Lavon Jennings MD | PCP | | + +------+ + Encounter Details +--------+ + + + + | Date | Type | Department | Care Team | Description | +--------+ + + + + | 02/19/ | Orders Only | [facility] | Conversion | | | 2013 | | NEPHROLOGY [place] | Transaction, | | | | | [address] [place] | Provider Unknown | | | | | [address] [place] | [phone] | | | | | [address] | | | | | | [phone] | | | +--------+ + + + [...] | EXTERNAL LAB: CBC | Routin | 02/19/2014 | | Results for this | | | e | 12:00 AM | | procedure are in the | | | | PDT | | results section. | + +--------+ + + + | URINALYSIS WITH | Routin | 02/19/2014 | | Results for this | | MICROSCOPIC WITH | e | 12:00 AM | | procedure are in the | | CULTURE IF INDICATED | | PDT | | results section. | + +--------+ + + + | PARATHYROID HORMONE, | Routin | 02/19/2014 | | Results for this | | INTACT AND CALCIUM | e | 12:00 AM | | procedure are in the | | | | PDT | | results section. | + +--------+ + + + | PROTEIN/CREATININE | Routin | 02/19/2014 | | Results for this | | RATIO, URINE | e | 12:00 AM | | procedure are in the | | | | PDT | | results section. | + +--------+ + + + | PROTEIN, URINE, | Routin | 02/19/2014 | | Results for this | | RANDOM | e | 12:00 AM | | procedure are in the | | | | PDT | | results section. | + +--------+ + + + | CREATININE, URINE, | Routin | 02/19/2014 | | Results for this | | RANDOM | e | 12:00 AM | | procedure are in the | | | | PDT | | results section. | + +--------+ + + + | MAGNESIUM | Routin | 02/19/2014 | | Results for this | | | e | 12:00 AM | | procedure are in the | | | | PDT | | results section. | + +--------+ + + + | RENAL FUNCTION PANEL | Routin | 02/19/2014 | | Results for this | | | e | 12:00 AM | | procedure are in the | | | | PDT | | results section. | + +--------+ + + + documented in this encounter Results Urinalysis with Microscopic with Culture if Indicated (02/19/2014 12:00 AM PDT) + + + + [...] + + + | Spec Grav, | 1.014 | | EXTERNAL | | | Fluid [...] + + + | WBC, UA | 0 | | EXTERNAL | | | | | | LAB | | + + + + + + | RBC, UA | 0 | | EXTERNAL | | | | | | LAB | | + + + + + + | Epithelial | Negative | | EXTERNAL | | | Cells | | | LAB | | + + + + + + | Bacteria, | Occasional | | EXTERNAL | | | UA | | | LAB | | + + + + + + | HYALINE | None Seen | | EXTERNAL | | | CASTS [...] + +---------+ + + Parathyroid Hormone, Intact and Calcium (02/19/2014 12:00 AM PDT) + +-------+ + + + | Component | Value | Ref Range | Performed | Pathologist | | | | | At | Signature | + +-------+ + + + | PTH Intact | 134.5 | | EXTERNAL | | | | | | LAB | | + +-------+ + + + | Calcium | 10.2 | | EXTERNAL | | | | [...] + +---------+ + + Protein/Creatinine Ratio, Urine (02/19/2014 12:00 AM PDT) + +-------+ + + + | Component | Value | Ref Range | Performed | Pathologist | | | | | At | Signature | + +-------+ + + + | Protein/Cre | 78.7 | | EXTERNAL | | | at Ratio [...] | | | + +---------+ + + Protein, Urine, Random (02/19/2014 12:00 AM PDT) + +-------+ + + + | Component | Value | Ref Range | Performed | Pathologist | | | | | At | Signature | + +-------+ + + + | Protein, | 14 | | EXTERNAL | | | Urine [...] + +---------+ + + Creatinine, Urine, Random (02/19/2014 12:00 AM PDT) + +-------+ + + + | Component | Value | Ref Range | Performed | Pathologist | | | | | At | Signature | + +-------+ + + + | Creatinine, | 178 | | EXTERNAL | | | 24H [...] | + +---------+ + + External Lab: VELIA (02/19/2014 12:00 AM PDT) + +-------+ + + + | Component | Value | Ref Range | Performed | Pathologist | | | | | At | Signature | + +-------+ + + + | WBC | 7.4 | 10 | EXTERNAL | | | | | | LAB | | + +-------+ + + + | Non- | 4.83 | 10 | EXTERNAL | | | Red Blood | | | LAB | | | Cells | | | | | | Counted | | | | | + +-------+ + + + | Hemoglobin | 14.5 | g/dL | EXTERNAL | | | | | | LAB | | + +-------+ + + + | Hematocrit, | 42.0 | % | EXTERNAL | | | POC | | | LAB | | + +-------+ + + + | MCV | 87.0 | fL | EXTERNAL | | | | | | LAB | | + +-------+ + + + | MCH | 30 | pg | EXTERNAL | | | | | | LAB | | + +-------+ + + + | MCHC | 35 | g/dL | EXTERNAL | | | | | | LAB | | + +-------+ + + + | Platelet | 206 | K/ L | EXTERNAL | | [...] | | + +---------+ + + Magnesium (02/19/2014 12:00 AM PDT) + +-------+ + + + | Component | Value | Ref Range | Performed | Pathologist | | | | | At | Signature | + +-------+ + + + | Magnesium | 2.0 | mg/dL | EXTERNAL | | | [...] + +---------+ + + Renal Function Panel (02/19/2014 12:00 AM PDT) + +-------+ + + + | Component | Value | Ref Range | Performed | Pathologist | | | | | At | Signature | + +-------+ + + + | Glucose, | 103 | mg/dL | EXTERNAL | | | Fasting | | | LAB | | + +-------+ + + + | BUN | 40 | mg/dL | EXTERNAL | | | | | | LAB | | + +-------+ + + + | Creatinine | 1.93 | mg/dL | EXTERNAL | | | | | | LAB | | + +-------+ + + + | PHOSPHORUS | 2.9 | mg/dL | EXTERNAL | | | | | | LAB | | + +-------+ + + + | Albumin | 4.4 | | EXTERNAL | | | | | | LAB | | + +-------+ + + + | Na | 142 | mmol/L | EXTERNAL | | | | | | LAB | | + +-------+ + + + | K | 4.2 | mmol/L | EXTERNAL | | | | | | LAB | | + +-------+ + + + | Cl | 107 | mmol/L | EXTERNAL | | | | | | LAB | | + +-------+ + + + | CO2 | 23 | mmol/L | EXTERNAL | | | | | | LAB | | + +-------+ + + + | Anion Gap | 16.2 | mmol/L | EXTERNAL | | | | | | LAB | | + +-------+ + + + | eGFR, | 35 | | EXTERNAL | | | non- | | | LAB | | | [place] | | | | | + +-------+ + + + | Phosphorus, | 2.9 | | EXTERNAL | | | Inorganic | | | LAB | | + +-------+ + + + | BUN/Creatin | 20.7 | | EXTERNAL | | | ine Ratio | | | LAB | | + +-------+ + + + | Calcium | 10.2 | mg/dL | EXTERNAL | | | | | | LAB | | + +-------+ + + + | Estimated | 35 | mg/dL | EXTERNAL | [...]
--- OUTSIDE RECORDS SUMMARY | ~2020-03-25 | XMS | Encounter Summary ---
Demographics + + + | Address | [address] | | | [place] [address] | + + + | Home Phone | | + + + | Preferred Language | Unknown | + + + | Marital Status | Single | + + + | Protestant Affiliation | Unknown | + + + | Race | White | + + + | Ethnic Group | Not or | + + + Author + + + | Author | [facility] | | | and [place] | + + + | Organization | [facility] | | | [...] Team Providers + +------+ + | Care Concrete Grinder Operator Name | Role | Phone | + +------+ + | Eric Jerry NP | PCP | | + +------+ + Encounter Details +--------+ + + + + | Date | Type | Department | Care Team | Description | +--------+ + + + + | 07/23/ | Orders Only | [facility] | Pacheco Munson MD | | | 2019 | | [place]PRHOLOGY [place] | [address] [facility] | | | | | [address] | [address] [place], [place] | | | | | [address] [place], [place] | [address] | | | | | [address] | | | | | | [phone] | | | +--------+ + + + [...]
--- OUTSIDE RECORDS SUMMARY | ~2020-03-25 | XMS | Encounter Summary ---
Demographics + + + | Address | [address] | | | [place] [address] | + + + | Home Phone | | + + + | Preferred Language | Unknown | + + + | Marital Status | Single | + + + | Shinto Affiliation | Unknown | + + + | Race | White | + + + | Ethnic Group | Not or | + + + Author + + + | Author | [facility] | | | and [place] | + + + | Organization | [facility] | | [...] Providers + +------+ + | Care Manager Of Loss Prevention Operations Name | Role | Phone | + +------+ + | Lavon Jennings MD | PCP | | + +------+ + Encounter Details +--------+ + + + + | Date | Type | Department | Care Team | Description | +--------+ + + + + | 08/01/ | Orders Only | [facility] | Conversion | | | 2016 | | NEPHROLOGY [place] | Transaction, | | | | | [address] [place] | Provider Unknown | | | | | [address] [place] | [phone] | | | | | [address] | | | | | | [phone] | | | +--------+ + + + [...] | + +--------+ + + + | VITAMIN D, | Routin | 08/01/2016 | | Results for this | | DEFICIENCY SCREEN | e | 11:37 AM | | procedure are in the | | (25-HYDROXY) | | PST | | results section. | + +--------+ + + + | URINALYSIS, | Routin | 08/01/2016 | | Results for this | | MICROSCOPIC ONLY | e | 11:37 AM | | procedure are in the | | | | PST | | results section. | + +--------+ + + + | HEMOGLOBIN AND | Routin | 08/01/2016 | | Results for this | | HEMATOCRIT | e | 11:37 AM | | procedure are in the | | | | PST | | results section. | + +--------+ + + + | PROTEIN/CREATININE | Routin | 08/01/2016 | | Results for this | | RATIO, URINE | e | 11:37 AM | | procedure are in the | | | | PST | | results section. | + +--------+ + + + | URIC ACID | Routin | 08/01/2016 | | Results for this | | | e | 11:37 AM | | procedure are in the | | | | PST | | results section. | + +--------+ + + + | PARATHYROID HORMONE, | Routin | 08/01/2016 | | Results for this | | INTACT | e | 11:37 AM | | procedure are in the | | | | PST | | results section. | + +--------+ + + + | MAGNESIUM | Routin | 08/01/2016 | | Results for this | | | e | 11:37 AM | | procedure are in the | | | | PST | | results section. | + +--------+ + + + | RENAL FUNCTION PANEL | Routin | 08/01/2016 | | Results for this | | | e | 11:37 AM | | procedure are in the | | | | PST | | results section. | + +--------+ + + + documented in this encounter Results Hemoglobin and Hematocrit (08/01/2016 11:37 AM PST) + +-------+ + + + | Component | Value | Ref Range | Performed | Pathologist | | | | | At | Signature | + +-------+ + + + | Hemoglobin | 16.4 | 13.5 - 18.0 | EXTERNAL | | | | | g/dL | LAB | | + +-------+ + + + | Hematocrit, | 48.1 | 41 - 50 % | EXTERNAL [...] + +---------+ + + Protein/Creatinine Ratio, Urine (08/01/2016 11:37 AM PST) + + + + + + | Component | Value | Ref Range | Performed | Pathologist | | | | | At | Signature | + + + + + + | Protein/Cre | 841.1 (A) | 0 - 150 | EXTERNAL [...] | | | + +---------+ + + Vitamin D, Deficiency Screen (25-Hydroxy) (08/01/2016 11:37 AM PST) + +--------+ + + + | Component | Value | Ref Range | Performed | Pathologist | | | | | At | Signature | + +--------+ + + + | Vit D, | 17 (A) | 30 - 100 | EXTERNAL | | | 25-Hydroxy | | | LAB | | + +--------+ + + + + + | Specimen | + + | Blood specimen | | (specimen) | + + + +---------+ + + | Performing | Address | City/State/Zipcode | Phone Number | | Organization | | | | + +---------+ + + | EXTERNAL LAB | | | | + +---------+ + + Urinalysis, Microscopic Only (08/01/2016 11:37 AM PST) + + + + + [...] + + + + | Specific | 1.013 | 1.005 - 1.030 | EXTERNAL | | | [place], | | | LAB | | | [...] + + + | Protein, | Comment: 75 | | EXTERNAL | | | Urine | | | LAB | | + + + + + + | pH, Urine | 7 | 5 - 9 | EXTERNAL | [...] | + +---------+ + + Uric Acid (08/01/2016 11:37 AM PST) + +-------+ + + + | Component | Value | Ref Range | Performed | Pathologist | | | | | At | Signature | + +-------+ + + + | Uric Acid | 6.2 | 4.4 - 7.6 | EXTERNAL | [...] + +---------+ + + Parathyroid Hormone, Intact (08/01/2016 11:37 AM PST) + + + + + + | Component | Value | Ref Range | Performed | Pathologist | | | | | At | Signature | + + + + + + | PTH INTACT | 288.9 (A) | 15 - 65 pg/mL | [...] | | + +---------+ + + Magnesium (08/01/2016 11:37 AM PST) + +-------+ + + + [...] + +---------+ + + Renal Function Panel (08/01/2016 11:37 AM PST) + + + + + [...] + + + + | Creatinine | 1.70 (A) | 0.70 - 1.25 | EXTERNAL | | | | | mg/dL | LAB | | + + + + + + | PHOSPHORUS | | mg/dL | EXTERNAL | | | | | | LAB | | + + + + + + | Albumin | 4.2 | 3.5 - 5.0 | EXTERNAL | | | | | | LAB | | + + + + + + | Na | 144 (A) | 132 - 143 | EXTERNAL | | | | | mmol/L | LAB | | + + + + + + | K | 3.5 (A) | 3.6 - 5.1 | EXTERNAL | | | | | mmol/L | LAB | | + + + + + + | Cl | 106 | 95 - 112 mmol/L | EXTERNAL | | | | | | LAB | | + + + + + + | CO2 | 25 | 19 - 31 mmol/L | EXTERNAL | | | | | | LAB | | + + + + + + | Anion Gap | 16.5 | 7 - 21 mmol/L | EXTERNAL | | | | | | LAB | | + + + + + + | eGFR, | | | EXTERNAL | | | non- | | | LAB | | | [place] | | | | | + + + + + + | Phosphorus, | 2.3 (A) | 2.5 - 5.0 | EXTERNAL | | | Inorganic | | | LAB | | + + + + + + | BUN/Creatin | 18.8 | 6.0 - 28.6 | EXTERNAL | | | ine Ratio | | | LAB | | + + + + + + | Calcium | 10.2 | 8.4 - 10.2 | EXTERNAL | | | | | mg/dL | LAB | | + + + + + + | Estimated | 40 | mg/dL | EXTERNAL | [...]
--- OUTSIDE RECORDS SUMMARY | ~2020-03-25 | XMS | Clinical Summary ---
Demographics + + + | Address | [address] | | | [place] [address] | + + + | Home Phone | | + + + | Preferred Language | Unknown | + + + | Marital Status | Single | + + + | Sikhism Affiliation | Unknown | + + + | Race | White | + + + | Ethnic Group | Not or | + + + Author + + + | Author | [facility] | | | and [place] | + + + | Organization | [facility] | | | [...] Team Providers + +------+ + | Care Clinical Sociologist Name | Role | Phone | + +------+ + | Eric Jerry NP | PCP | | + +------+ + Allergies No Known Allergies Medications + + + +---------+------+------+-------+ | Medication | Sig | Dispensed | Refills | Star | End | Statu | | | | | | t | Date | s | | | | | | Date | | | + + + +---------+------+------+-------+ | cholecalciferol | Take 1,000 Units by | | 0 | / | | Activ | | (VITAMIN D-3) 1,000 | mouth daily. | | | 01/19 | | e | | units capsule | | | | 13 | | | + + + +---------+------+------+-------+ | aspirin 81 MG EC | Take 1 tablet by | 90 | 3 | 02/0 | | Activ | | tablet | mouth daily. | tablet | | 07/22 | | e | | | | | | 17 | | | + + + +---------+------+------+-------+ | metoprolol | Take 1 tablet by | 90 | 3 | 02/0 | | Activ | | succinate | mouth daily. | tablet | | 07/22 | | e | | (TOPROL-XL) 100 mg | | | | 17 | | | | ER tablet | | | | | | | + + + +---------+------+------+-------+ +---+ + | | Additional | | | InformationPatient | | | not taking. Reported | | | on 08/19/2019 9:40 | | | AM | +---+ + + + +---------+----+------+---+-------+ | lisinopril | TAKE ONE TABLET BY | 60 | 0 | 02/1 | | Activ | | (PRINIVIL, ZESTRIL) | MOUTH TWICE A DAY | tablet | | 6/20 | | e | | 20 mg tablet | | | | 18 | | | + + +---------+----+------+---+-------+ | tamsulosin | TAKE ONE CAPSULE BY | 180 | 3 | 02/1 | | Activ | | (FLOMAX) 0.4 mg CAPS | MOUTH TWICE A DAY | capsule | | 6/20 | | e | | | | | | 18 | | | + + +---------+----+------+---+-------+ | | Take 1 tablet by | 90 | 3 | 07/2 | | Activ | | hydroCHLOROthiazide | mouth daily. | tablet | | 4/20 | | e | | 25 mg tablet | | | | 18 | | | + + +---------+----+------+---+-------+ | finasteride | Take 5 mg by mouth | | 0 | 10/0 | | Activ | | (PROSCAR) 5 mg | daily. | | | /20 | | e | | tablet | | | | 18 | | | + + +---------+----+------+---+-------+ | sodium bicarbonate | Take 1 tablet by | 120 | 11 | 10/0 | | Activ | | 650 mg tablet | mouth 4 (four) times | tablet | | 20 | | e | | | daily. | | | 18 | | | + + +---------+----+------+---+-------+ +---+ + | | Additional | | | InformationPatient | | | not taking. Reported | | | on 08/19/2019 9:40 | | | AM | +---+ + + + + +----+------+---+-------+ | sodium | Take 15 mLs by mouth | 1,419 | 11 | 01/2 | | Activ | | citrate-citric acid | 3 (three) times | mL | | 1/20 | | e | | (BICITRA) 500-334 | daily with meals. | | | 19 | | | | MG/5ML solution | | | | | | | + + + +----+------+---+-------+ +---+ + | | Additional | | | InformationPatient | | | not taking. Reported | | | on 08/19/2019 9:40 | | | AM | +---+ + + + +---+---+------+---+-------+ | docusate-senna | Take 1 tablet by | | 0 | 05/0 | | Activ | | (SENOKOT-S) 50-8.6 | mouth daily. | | | 12/20 | | e | | mg per tablet | | | | 19 | | | + + +---+---+------+---+-------+ | metoprolol | Take 25 mg by mouth | | 0 | 05/0 | | Activ | | tartrate (LOPRESSOR) | 2 (two) times daily. | | | 12/20 | | e | | 25 mg tablet | | | | 19 | | | + + +---+---+------+---+-------+ | indapamide (LOZOL) | Take 1.25 mg by | | 0 | | | Activ | | 1.25 MG tablet | mouth every morning. | | | | | e | + + +---+---+------+---+-------+ | amLODIPine | Take 5 mg by mouth | | 0 | | | Activ | | (NORVASC) 5 mg | Daily. | | | | | e | | tablet | | | | | | | + + +---+---+------+---+-------+ | spironolactone | Take 25 mg by mouth | | 0 | | | Activ | | (ALDACTONE) 25 mg | 2 times daily. 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 | + + + + + | CKD (chronic kidney disease), stage III | 12/07/2012 | + + + | Vitamin D deficiency | 12/07/2012 | + + + | Essential (primary) hypertension | 10/31/2012 | + + + | BPH (benign prostatic hypertrophy) | 10/31/2012 | + + + | Persistent proteinuria | 10/31/2012 | + + + | Class 1 obesity due to excess calories without serious | 10/31/2012 | | comorbidity with body mass index (BMI) of 32.0 to 32.9 in adult | | + + + Encounters +--------+ + + + + | Date | Type | Specialty | Care Team | Description | +--------+ + + + + | 02/23/ | Office | Nephrology | Pacheco Munson MD | CKD (chronic kidney | | 2020 | Visit | | | disease), stage III | | | | | | (Primary Dx); | | | | | | Essential (primary) | | | | | | hypertension; | | | | | | Secondary | | | | | | hyperparathyroidism | | | | | | ([facility]); Class 1 | | | | | [...] | | | | | Hypomagnesuria | +--------+ + + + + | 02/23/ | Orders Only | Nephrology | Pacheco Munson MD | Essential (primary) | | 2020 | | | | hypertension | | | | | | (Primary Dx); CKD | | | | | | (chronic kidney | | | | | | disease), stage III; | | | | | | Secondary | | | | | | hyperparathyroidism | | | | | | ([facility]); Persistent | | | | | | proteinuria | +--------+ + + + + | 02/20/ | Documentati | Nephrology | Maycol, | Results (02/20/20) | | 2020 | on | | Ole Pollard | | | | | | [place]ather | | +--------+ + + + + from Last 3 Months Social History + +-------+ +--------+------+ | Tobacco [...] on file | | + + + Last Filed Vital Signs + + + [...] + + + + | Temperature | 36.7 C (98 F) | 01/08/2018 11:50 AM | | | | | PDT [...] | | + + + + + Plan of Treatment + + + + + | Health Maintenance | Due Date | Last | Comments | | | | Done | | + + + + + | Hepatitis C | | | | | Screening | 9 | | | + + + + + | Medication | | | | | Management | 9 | | | + + + + + | Vaccine: | | | | | Dtap/Tdap/Td (1 - | 8 | | | | Tdap) | | | | + + + + + | Colorectal Cancer | | | | | Screening | 9 | | | | (Colonoscopy) | | | | + + + + + | Vaccine: Zoster (1 | | | | | of 2) | 9 | | | + + + + + | AAA Screening | | | | | | 4 | | | + + + + + | Vaccine: | | | | | Pneumococcal 65+ (1 | 4 | | | | of 1 - PPSV23) | | | | + + + + + | Med Mgmt: Vit D | | 11/10/19 | | | | 8 | 17, | | | | | 08/10/19 | | | | | 17, | | | | | 08/01/19 | | | | | 17 | | + + + + + | Adult Annual | | | | | Wellness Visit | 9 | | | + + + + + | Vaccine: Influenza | | | | | (#1) | 0 | | | + + + + + | Med Mgmt: Cr | | 02/20/20 | | | | 1 | 20, | | | | | 08/14/19 | | | | | 20, | | | | | 10/23/19 | | | | | 19, | | | | | Addition | | | | | al | | | | | history | | | | | exists | | + + + + + | Med Mgmt: K | | 02/20/20 | | | | 1 | 20, | | | | | 08/14/19 | | | | | 20, | | | | | 10/23/19 | | | | | 19, | | | | | Addition | | | | | al | | | | | history | | | | | exists | | + + + + + | Med Mgmt: Na | | 02/20/20 | | | | 1 | 20, | | | | | 08/14/19 | | | | | 20, | | | | | 10/23/19 | | | | | 19, | | | | | Addition | | | | | al | | | | | history | | | | | exists | | + + + + + Procedures + +--------+ + + + | Procedure Name | Priori | Date/Time | Associated Diagnosis | Comments | | | ty | | | | + +--------+ + + + | LABS - EXTERNAL SCAN | | 02/20/2020 | | Results for this | | | | 12:00 AM | | procedure are [...] section. | + +--------+ + + + from Last 3 Months Results LABS - EXTERNAL SCAN (02/20/2020 12:00 AM PDT) + + + | Narrative | Performed At | + + + | Ordered by an | | | unspecified provider. | | + + + CBC with Manual Differential (02/20/2020) + + [...] + + | Blood | + + from Last 3 Months Insurance + +--------+ +--------+ +---------+--------+ | Payer | Benefi | Subscriber | Effect | Phone | Address | Type | | | t Plan | ID | [id number] | | | | | | / | | Dates | | | | | | Group | | | | | | + +--------+ +--------+ +---------+--------+ | MEDICARE | RAILRO | [id number] | | [phone] | | Medica | | | AD | | 014-Pr | 5 | | re | | | MEDICA | | esent | | | | | | RE | | | | | | + +--------+ +--------+ +---------+--------+ | [employer] | STATE | [id number] | | [phone] | | Indemn | | | FARM | 7 | 016-Pr | 2 | | ity | | | MDCR | | esent | | | | | | SUPPL | | | | | | + +--------+ +--------+ +---------+--------+ + +--------+ +--------+ + + | Guarantor Name | Accoun | Relation to | Date | Phone | Billing Address | | | t Type | Patient | of | | | | | | | | | | + +--------+ +--------+ + + | Calderon Wise | Person | Self [birth year] | [address] | | | al/Fam | | 1951 | [phone] | [address] [place], | | | [place] | | | [address] (Home) | [place] [address] | + +--------+ +--------+ + + Advance Directives + + + + + | Type | Date Recorded | Patient | Explanation | | | | [employer] Machine Operator | | + + + + + | Power of | | | | | Director Of Workforce Development | | | | + + + + + | Advance | | | | | Directive | | | | + + + + +
--- OUTSIDE RECORDS SUMMARY | ~2020-03-25 | XMS | Encounter Summary ---
Demographics + + + | Address | [address] | | | [place] [address] | + + + | Home Phone | | + + + | Preferred Language | Unknown | + + + | Marital Status | Single | + + + | Jehovah'S Witness Affiliation | Unknown | + + + | Race | White | + + + | Ethnic Group | Not or | + + + Author + + + | Author | [facility] | | | and [place] | + + + | Organization | [facility] | | | [...] Team Providers + +------+ + | Care Sr. Director Product Management Name | Role | Phone | + +------+ + | Eric Jerry NP | PCP | | + +------+ + Encounter Details +--------+ + + + + | Date | Type | Department | Care Team | Description | +--------+ + + + + | 08/03/ | Orders Only | [facility] | Jarad Che, | | | 2017 | | NEPHCARLITO [place] | [address] | | | | | [address] [facility] | [place] | | | | | [place] | [place] | | | | | [address] | [address] | | | | | [phone] | [phone] | | | | | | | | +--------+ + + + [...]
--- OUTSIDE RECORDS SUMMARY | ~2020-03-25 | XMS | Encounter Summary ---
Demographics + + + | Address | [address] | | | [place] [address] | + + + | Home Phone [...] Author + + + | Author | [facility] | | | and [place] | + + + | Organization | [facility] | | [...] Team Providers + +------+ + | Care Automation Control Technician Name | Role | Phone | + [...] + + + | Authorized | | | Diagnoses | [facility] | [facility] | | | | | Essential | Pacheco Burden MD | HOSPITAL | | | | | (primary) | [address] | [address] | | | | | hypertension | [address] | [address] | | | | | Stage 3 | [place], | [place] | | | | | chronic | [place] [address] | [address] | | | | | kidney | Phone: | Phone: | | | | | disease | [phone] | [phone] | | | | | (HCC) | Fax: | Fax: | | | | | Persistent | [phone] | [phone] | | | | | proteinuria | [...] | +--------+ + + + + | 08/19/ | Orders Only | [facility] | Pacheco Munson MD | Essential (primary) | | 2020 | | [place] | [address] [place] | hypertension | | | | [address] [place] | [address] [place], [place] | (Primary Dx); CKD | | | | [address] [facility], [place] | [address] | (chronic kidney | | | | [address] | | disease), stage III; | | | | [phone] | | Persistent | | | | [...] | | | e | (primary) | 08/21/2019, Expires: | | | | | hypertension CKD | 08/19/2020 | | | | | (chronic kidney | | | | | | disease), stage III | | | | | | Persistent | | | | | | proteinuria | | + +---------+--------+ + + | Renal Function Panel | Lab | Routin | Essential | Expected: | | | | e | (primary) | 08/26/2019, Expires: | | | | | hypertension CKD | 08/19/2020 | | | | | (chronic kidney | | | | | | disease), stage III | | | | | | Persistent | | | | | | proteinuria | | + +---------+--------+ + + | CBC with | Lab | Routin | Essential | 1 Occurrences | | Differential | | e | (primary) | starting 08/21/2019 | | | | | hypertension CKD | until 08/19/2020 | | | | | (chronic kidney | | | | | | disease), stage III | | | | | | Persistent | | | | | | proteinuria | | + +---------+--------+ + + | Uric Acid | Lab | Routin | Essential | Expected: | | | | e | (primary) | 08/26/2019, Expires: | | | | | hypertension CKD | 08/19/2020 | | | | | (chronic kidney | | | | | | disease), stage III | | | | | | Persistent | | | | | | proteinuria | | + +---------+--------+ + + | Parathyroid Hormone, | Lab | Routin | Essential | Expected: | | Intact | | e | (primary) | 08/26/2019, Expires: | | | | | hypertension CKD | 08/19/2020 | | | | | (chronic kidney | | | | | | disease), stage III | | | | | | Persistent | | | | | | proteinuria | | + +---------+--------+ + + | Protein/Creatinine | Lab | Routin | Essential | Expected: | | Ratio, Urine | | e | (primary) | 08/26/2019, Expires: | | | | | hypertension CKD | 08/19/2020 | | | | | (chronic kidney | | | | | | disease), stage III | | | | | | Persistent | | | | | | proteinuria | | + +---------+--------+ + + documented as of this encounter Visit Diagnoses + + | Diagnosis | + + | Essential (primary) hypertension - Primary Unspecified essential hypertension | + + | CKD (chronic kidney disease), stage III | + + | Persistent proteinuria Proteinuria | + + documented in this encounter"
--- OUTSIDE RECORDS SUMMARY | ~2020-03-25 | XMS | Encounter Summary ---
Demographics + + + | Address | [address] | | | [place] [address] | + + + | Home Phone | | + + + | Preferred Language | Unknown | + + + | Marital Status | Single | + + + | Buddhism Affiliation | Unknown | + + + [...] Team Providers + +------+ + | Care Supervisor Small Appliance Assembly Name | Role | Phone | + +------+ + | Eric Jerry NP | PCP | | + +------+ + Encounter Details +--------+ + + + + | Date | Type | Department | Care Team | Description | +--------+ + + + + | 08/18/ | Orders Only | [facility] | Jarad Che, | | | 2018 | | NEPHCARLITO [place] | [address] | | | | | [address] [facility] | [place] | | | | | [place] | [place] | | | | | [address] | [address] | | | | | [phone] | [phone] | | | | | | | [...]
--- OUTSIDE RECORDS SUMMARY | ~2020-03-25 | XMS | Encounter Summary ---
Demographics + + + | Address | [address] | | | [place] [address] | + + + | Home Phone [...] Author + + + | Author | [facility] | | | and [place] | + + + | Organization | [facility] | | | [...] Team Providers + +------+ + | Care Business Objects Consultant Name | Role | Phone | + +------+ + | Lavon Jennings MD | PCP | | + +------+ + Encounter Details +--------+ + + + + | Date | Type | Department | Care Team | Description | +--------+ + + + + | 02/09/ | Orders Only | [facility] | Jarad Che, | | | 2016 | | NEPHROLOGY [place] | PERSONAL ASSISTANT [address] | | | | | [address] [place] | [address] | | | | | [address] [place], [place] | [facility] [place] | | | | | [address] | [address] | | | | | [phone] | [phone] | | | | | | | [...] | EXTERNAL LAB: CBC | Routin | 02/09/2017 | | Results for this | | | e | 9:00 AM | | procedure are in the | | | | PDT | | results section. | + +--------+ + + + | URINALYSIS, REFLEX | Routin | 02/09/2017 | | Results for this | | MICROSCOPIC AND/OR | e | 9:00 AM | | procedure are in the | | CULTURE | | PDT | | results section. | + +--------+ + + + | PROTEIN/CREATININE | Routin | 02/09/2017 | | Results for this | | RATIO, URINE | e | 9:00 AM | | procedure are in the | | | | PDT | | results section. | + +--------+ + + + | URIC ACID | Routin | 02/09/2017 | | Results for this | | | e | 9:00 AM | | procedure are in the | | | | PDT | | results section. | + +--------+ + + + | PARATHYROID HORMONE, | Routin | 02/09/2017 | | Results for this | | INTACT | e | 9:00 AM | | procedure are in the | | | | PDT | | results section. | + +--------+ + + + | MAGNESIUM | Routin | 02/09/2017 | | Results for this | | | e | 9:00 AM | | procedure are in the | | | | PDT | | results section. | + +--------+ + + + | RENAL FUNCTION PANEL | Routin | 02/09/2017 | | Results for this | | | e | 9:00 AM | | procedure are in the | | | | PDT | | results section. | + +--------+ + + + documented in this encounter Results Urinalysis, Reflex Microscopic and/or Culture (02/09/2017 9:00 AM PDT) + + + + + [...] + + + | Spec Grav, | 1.022 | 1.005 - 1.030 | EXTERNAL | | | Fluid | [...] + + + + | Total | 25 | | EXTERNAL | | | Protein [...] + +---------+ + + Protein/Creatinine Ratio, Urine (02/09/2017 9:00 AM PDT) + + + + + + | Component | Value | Ref Range | Performed | Pathologist | | | | | At | Signature | + + + + + + | Protein/Cre | 209.9 (A) | 0 - 150 | EXTERNAL [...] + +---------+ + + External Lab: CBC (02/09/2017 9:00 AM PDT) + +-------+ + + + | Component | Value | Ref Range | Performed | Pathologist | | | | | At | Signature | + +-------+ + + + | WBC | 6.4 | 4.5 - 11.0 10 | EXTERNAL | | | | | | LAB | | + +-------+ + + + | Non- | 5.23 | 4.3 - 5.7 10 | EXTERNAL | | | Red Blood | | | LAB | | | Cells | | | | | | Counted | | | | | + +-------+ + + + | Hemoglobin | 15.8 | 13.5 - 18.0 | EXTERNAL | | | | | g/dL | LAB | | + +-------+ + + + | Hematocrit, | 46.8 | 41 - 50 % | EXTERNAL | | | POC | | | LAB | | + +-------+ + + + | MCV | 89.6 | 81 - 99 fL | EXTERNAL [...] +-------+ + + + | Platelet | 207 | 140 - 440 K/ L | EXTERNAL | | | Count | | | LAB | | | Plasma | | | | | + +-------+ + + + | RDW-CV | 13.6 | 10.5 - 15.0 % | EXTERNAL [...] | + +---------+ + + Uric Acid (02/09/2017 9:00 AM PDT) + +-------+ + + + [...] + +---------+ + + Parathyroid Hormone, Intact (02/09/2017 9:00 AM PDT) + + + + + + | Component | Value | Ref Range | Performed | Pathologist | | | | | At | Signature | + + + + + + | PTH INTACT | 198.8 (A) | 15 - 65 pg/mL | [...] | | + +---------+ + + Magnesium (02/09/2017 9:00 AM PDT) + +-------+ + + + | Component | Value | Ref Range | Performed | Pathologist | | | | | At | Signature | + +-------+ + + + | Magnesium | 2.0 | 1.7 - 2.5 mg/dL | EXTERNAL [...] + +---------+ + + Renal Function Panel (02/09/2017 9:00 AM PDT) + + + + + + | Component | Value | Ref Range | Performed | Pathologist | | | | | At | Signature | + + + + + + | Glucose, | 103 (A) | 70 - 100 mg/dL | EXTERNAL | | | Fasting | | | LAB | | + + + + + + | BUN | 38 (A) | 6 - 23 mg/dL | EXTERNAL | | | | | | LAB | | + + + + + + | Creatinine | 1.57 (A) | 0.70 - 1.25 | EXTERNAL [...] | 3.9 | 3.6 - 5.1 | EXTERNAL | | | | | mmol/L | LAB | | + + + + + + | Cl | 109 | 95 - 112 mmol/L | EXTERNAL | | | | | | LAB | | + + + + + + | CO2 | 24 | 19 - 31 mmol/L | EXTERNAL | | | | | | LAB | | + + + + + + | Anion Gap | 14.9 | 7 - 21 mmol/L | EXTERNAL | | | | | | LAB | | + + + + + + | eGFR, | | | EXTERNAL | | | non- | | | LAB | | | Georgian | | | | | + + + + + + | Phosphorus, | 2.5 | 2.5 - 5.0 | EXTERNAL | | | Inorganic | | | LAB | | + + + + + + | BUN/Creatin | 24.2 | 6.0 - 28.6 | EXTERNAL | | | ine Ratio | | | LAB | | + + + + + + | Calcium | 10.4 (A) | 8.4 - 10.2 | EXTERNAL | | | | | mg/dL | LAB | | + + + + + + | Estimated | 44 (A) | 60 mg/dL | EXTERNAL | [...]
--- OUTSIDE RECORDS SUMMARY | ~2020-03-25 | XMS | Encounter Summary ---
Demographics + + + | Address | [address] | | | [place] [address] | + + + | Home Phone | | + + + | Preferred Language | Unknown | + + + | Marital Status | Single | + + + | Latter-Day Affiliation | Unknown | + + + | Race | White | + + + | Ethnic Group | Not or | + + + Author + + + | Author | [facility] | | | and [place] | + + + | Organization | [facility] | | | [...] Team Providers + +------+ + | Care Batch Blender Name | Role | Phone | + +------+ + | Lavon Jennings MD | PCP | | + +------+ + Encounter Details +--------+ + + + + | Date | Type | Department | Care Team | Description | +--------+ + + + + | 11/09/ | Orders Only | [facility] | Conversion | | | 2016 | | NEPHROLOGY CHRIS | Transaction, | | | | | [address] | Provider Unknown | | | | | [address] | [phone] | | | | | [address] | | | | | | [phone] | | | +--------+ + + + [...] | EXTERNAL LAB: CBC | Routin | 11/09/2016 | | Results for this | | | e | 12:00 PM | | procedure are in the | | | | PDT | | results section. | + +--------+ + + + | VITAMIN D, | Routin | 11/09/2016 | | Results for this | | DEFICIENCY SCREEN | e | 12:00 PM | | procedure are in the | | (25-HYDROXY) | | PDT | | results section. | + +--------+ + + + | URINALYSIS, | Routin | 11/09/2016 | | Results for this | | MICROSCOPIC ONLY | e | 12:00 PM | | procedure are in the | | | | PDT | | results section. | + +--------+ + + + | PROTEIN/CREATININE | Routin | 11/09/2016 | | Results for this | | RATIO, URINE | e | 12:00 PM | | procedure are in the | | | | PDT | | results section. | + +--------+ + + + | URIC ACID | Routin | 11/09/2016 | | Results for this | | | e | 12:00 PM | | procedure are in the | | | | PDT | | results section. | + +--------+ + + + | PARATHYROID HORMONE, | Routin | 11/09/2016 | | Results for this | | INTACT | e | 12:00 PM | | procedure are in the | | | | PDT | | results section. | + +--------+ + + + | MAGNESIUM | Routin | 11/09/2016 | | Results for this | | | e | 12:00 PM | | procedure are in the | | | | PDT | | results section. | + +--------+ + + + | RENAL FUNCTION PANEL | Routin | 11/09/2016 | | Results for this | | | e | 12:00 PM | | procedure are in the | | | | PDT | | results section. | + +--------+ + + + documented in this encounter Results Protein/Creatinine Ratio, Urine (11/09/2016 12:00 PM PDT) + + + + + + | Component | Value | Ref Range | Performed | Pathologist | | | | | At | Signature | + + + + + + | Protein/Cre | 2195.7 (A) | 0 - 150 | EXTERNAL [...] + + Vitamin D, Deficiency Screen (25-Hydroxy) (11/09/2016 12:00 PM PDT) + +-------+ + + + | Component | Value | Ref Range | Performed | Pathologist | | | | | At | Signature | + +-------+ + + + | Vit D, | 35 | 30 - 100 | EXTERNAL | [...] + +---------+ + + Urinalysis, Microscopic Only (11/09/2016 12:00 PM PDT) + + + + + + [...] + + + + | Specific | 1.014 | 1.005 - 1.030 | EXTERNAL | | | [place], | | | LAB | | | [...] + +---------+ + + External Lab: CBC (11/09/2016 12:00 PM PDT) + +-------+ + + + | Component | Value | Ref Range | Performed | Pathologist | | | | | At | Signature | + +-------+ + + + | WBC | 8.0 | 4.5 - 11.0 10 | EXTERNAL | | | | | | LAB | | + +-------+ + + + | Non- | 4.91 | 4.3 - 5.7 10 | EXTERNAL | | | Red Blood | | | LAB | | | Cells | | | | | | Counted | | | | | + +-------+ + + + | Hemoglobin | 15.1 | 13.5 - 18.0 | EXTERNAL | | | | | g/dL | LAB | | + +-------+ + + + | Hematocrit, | 43.6 | 41 - 50 % | EXTERNAL | | | POC | | | LAB | | + +-------+ + + + | MCV | 88.7 | 81 - 99 fL | EXTERNAL | | | | | | LAB | | + +-------+ + + + | MCH | 31 | 27 - 33 pg | EXTERNAL | | | | | | LAB | | + +-------+ + + + | MCHC | 35 | 30 - 36 g/dL | EXTERNAL | | | | | | LAB | | + +-------+ + + + | Platelet | 194 | 140 - 440 K/ L | EXTERNAL | | | Count | | | LAB | | | Plasma | | | | | + +-------+ + + + | RDW-CV | 14.1 | 10.5 - 15.0 % | EXTERNAL [...] | + +---------+ + + Uric Acid (11/09/2016 12:00 PM PDT) + +-------+ + + + | Component | Value | Ref Range | Performed | Pathologist | | | | | At | Signature | + +-------+ + + + | Uric Acid | 6.6 | 4.4 - 7.6 | EXTERNAL | [...] + +---------+ + + Parathyroid Hormone, Intact (11/09/2016 12:00 PM PDT) + + + + + + | Component | Value | Ref Range | Performed | Pathologist | | | | | At | Signature | + + + + + + | PTH INTACT | 183.9 (A) | 15 - 65 pg/mL | [...] | | + +---------+ + + Magnesium (11/09/2016 12:00 PM PDT) + +-------+ + + + | [...] + +---------+ + + Renal Function Panel (11/09/2016 12:00 PM PDT) + + + + + + | Component | Value | Ref Range | Performed | Pathologist | | | | | At | Signature | + + + + + + | Glucose, | 83 | 70 - 100 mg/dL | EXTERNAL | | | Fasting | | | LAB | | + + + + + + | BUN | 39 (A) | 6 - 23 mg/dL | EXTERNAL | | | | | | LAB | | + + + + + + | Creatinine | 1.61 (A) | 0.70 - 1.25 | EXTERNAL | | | | | mg/dL | LAB | | + + + + + + | PHOSPHORUS | | mg/dL | EXTERNAL | | | | | | LAB | | + + + + + + | Albumin | 4.3 | 3.5 - 5.0 | EXTERNAL | | | | | | LAB | | + + + + + + | Na | 142 | 132 - 143 | EXTERNAL | [...] + + + + | CO2 | 26 | 19 - 31 mmol/L | EXTERNAL | | | | | | LAB | | + + + + + + | Anion Gap | 14.7 | 7 - 21 mmol/L | EXTERNAL | | | | | | LAB | | + + + + + + | eGFR, | | | EXTERNAL | | | non- | | | LAB | | | [place] | | | | | + + + + + + | Phosphorus, | 2.2 (A) | 2.5 - 5.0 | EXTERNAL | | | Inorganic | | | LAB | | + + + + + + | BUN/Creatin | 24.2 | 6.0 - 28.6 | EXTERNAL | | | ine Ratio | | | LAB | | + + + + + + | Calcium | 10.3 (A) | 8.4 - 10.2 | EXTERNAL | | | | | mg/dL | LAB | | + + + + + + | Estimated | 43 | mg/dL | EXTERNAL | | | [...]
--- OUTSIDE RECORDS SUMMARY | ~2020-03-25 | XMS | Encounter Summary ---
Demographics + + + | Address | [address] | | | [place] [address] | + + + | Home Phone | | + + + | Preferred Language | Unknown | + + + | Marital Status | Single | + + + | Yarsanism Affiliation | Unknown | + + + [...] Team Providers + +------+ + | Care Store Standards Associate Name | Role | Phone | + +------+ + | Lavon Jennings MD | PCP | | + +------+ + Encounter Details +--------+ + + + + | Date | Type | Department | Care Team | Description | +--------+ + + + + | 08/10/ | Orders Only | [facility] | Conversion | | | 2017 | | NEPHROLOGY [place] | Transaction, | | | | | [address] | Provider Unknown | | | | | [place] | [phone] | | | | | [address] | | | | | | [phone] | | | +--------+ + + + [...] | EXTERNAL LAB: CBC | Routin | 08/10/2016 | | Results for this | | | e | 10:32 AM | | procedure are in the | | | | PST | | results section. | + +--------+ + + + | VITAMIN D, | Routin | 08/10/2016 | | Results for this | | DEFICIENCY SCREEN | e | 10:32 AM | | procedure are in the | | (25-HYDROXY) | | PST | | results section. | + +--------+ + + + | URINALYSIS, | Routin | 08/10/2016 | | Results for this | | MICROSCOPIC ONLY | e | 10:32 AM | | procedure are in the | | | | PST | | results section. | + +--------+ + + + | PROTEIN/CREATININE | Routin | 08/10/2016 | | Results for this | | RATIO, URINE | e | 10:32 AM | | procedure are in the | | | | PST | | results section. | + +--------+ + + + | URIC ACID | Routin | 08/10/2016 | | Results for this | | | e | 10:32 AM | | procedure are in the | | | | PST | | results section. | + +--------+ + + + | PARATHYROID HORMONE, | Routin | 08/10/2016 | | Results for this | | INTACT | e | 10:32 AM | | procedure are in the | | | | PST | | results section. | + +--------+ + + + | MAGNESIUM | Routin | 08/10/2016 | | Results for this | | | e | 10:32 AM | | procedure are in the | | | | PST | | results section. | + +--------+ + + + | RENAL FUNCTION PANEL | Routin | 08/10/2016 | | Results for this | | | e | 10:32 AM | | procedure are in the | | | | PST | | results section. | + +--------+ + + + documented in this encounter Results Protein/Creatinine Ratio, Urine (08/10/2016 10:32 AM PST) + + + + + + | Component | Value | Ref Range | Performed | Pathologist | | | | | At | Signature | + + + + + + | Protein/Cre | 226.9 (A) | 0 - 150 | EXTERNAL [...] + + Vitamin D, Deficiency Screen (25-Hydroxy) (08/10/2016 10:32 AM PST) + +--------+ + + + | Component | Value | Ref Range | Performed | Pathologist | | | | | At | Signature | + +--------+ + + + | Vit D, | 26 (A) | 30 - 100 | EXTERNAL [...] + +---------+ + + Urinalysis, Microscopic Only (08/10/2016 10:32 AM PST) + + + + + [...] + + + + | Specific | 1.023 | 1.005 - 1.030 | EXTERNAL | | | [place], | | | LAB | | | [...] + +---------+ + + External Lab: VELIA (08/10/2016 10:32 AM PST) + +-------+ + + + | Component | Value | Ref Range | Performed | Pathologist | | | | | At | Signature | + +-------+ + + + | WBC | 8.3 | 4.5 - 11.0 10 | EXTERNAL | | | | | | LAB | | + +-------+ + + + | Non- | 5.66 | 4.3 - 5.7 10 | EXTERNAL | | | Red Blood | | | LAB | | | Cells | | | | | | Counted | | | | | + +-------+ + + + | Hemoglobin | 16.6 | 13.5 - 18.0 | EXTERNAL | | | | | g/dL | LAB | | + +-------+ + + + | Hematocrit, | 49.7 | 41 - 50 % | EXTERNAL | | | POC | | | LAB | | + +-------+ + + + | MCV | 87.9 | 81 - 99 fL | EXTERNAL | | | | | | LAB | | + +-------+ + + + | MCH | 29 | 27 - 33 pg | EXTERNAL | | | | | | LAB | | + +-------+ + + + | MCHC | 33 | 30 - 36 g/dL | EXTERNAL | | | | | | LAB | | + +-------+ + + + | Platelet | 195 | 140 - 440 K/ L | [...] | + +---------+ + + Uric Acid (08/10/2016 10:32 AM PST) + +-------+ + + + | Component | Value | Ref Range | Performed | Pathologist | | | | | At | Signature | + +-------+ + + + | Uric Acid | 7.4 | 4.4 - 7.6 | EXTERNAL | [...] + +---------+ + + Parathyroid Hormone, Intact (08/10/2016 10:32 AM PST) + + + + + + | Component | Value | Ref Range | Performed | Pathologist | | | | | At | Signature | + + + + + + | PTH INTACT | 213.7 (A) | 15 - 65 pg/mL | [...] | | + +---------+ + + Magnesium (08/10/2016 10:32 AM PST) + +-------+ + + + [...] + +---------+ + + Renal Function Panel (08/10/2016 10:32 AM PST) + + + + + + | Component | Value | Ref Range | Performed | Pathologist | | | | | At | Signature | + + + + + + | Glucose, | 109 (A) | 70 - 100 mg/dL | EXTERNAL | | | Fasting | | | LAB | | + + + + + + | BUN | 50 (A) | 6 - 23 mg/dL | EXTERNAL | | | | | | LAB | | + + + + + + | Creatinine | 2.32 (A) | 0.70 - 1.25 | EXTERNAL | | | | | mg/dL | LAB | | + + + + + + | PHOSPHORUS | 2.8 | 2.5 - 5.0 mg/dL | EXTERNAL [...] + + + + | K | 3.4 (A) | 3.6 - 5.1 | EXTERNAL | | | | | mmol/L | LAB | | + + + + + + | Cl | 104 | 95 - 112 mmol/L | EXTERNAL | | | | | | LAB | | + + + + + + | CO2 | 27 | 19 - 31 mmol/L | EXTERNAL | | | | | | LAB | | + + + + + + | Anion Gap | 15.4 | 7 - 21 mmol/L | EXTERNAL | | | | | | LAB | | + + + + + + | eGFR, | | | EXTERNAL | | | non- | | | LAB | | | [place] | | | | | + + + + + + | Phosphorus, | | | EXTERNAL | | | Inorganic | | | LAB | | + + + + + + | BUN/Creatin | 21.6 | 6.0 - 28.6 | EXTERNAL | | | ine Ratio | | | LAB | | + + + + + + | Calcium | 10.4 (A) | 8.4 - 10.2 | EXTERNAL | | | | | mg/dL | LAB | | + + + + + + | Estimated | 28 | mg/dL | EXTERNAL | | | [...]
--- OUTSIDE RECORDS SUMMARY | ~2020-03-25 | XMS | Encounter Summary ---
Demographics + + + | Address | [address] | | | [place] [address] | + + + | Home Phone | | + + + | Preferred Language | Unknown | + + + | Marital Status | Single | + + + | Oriental Orthodox Affiliation | Unknown | + + + | Race | White | + + + | Ethnic Group | Not or | + + + Author + + + | Author | [facility] | | | and [place] | + + + | Organization | [facility] | | | [...] Team Providers + +------+ + | Care Ecd Name | Role | Phone | + +------+ + | Eric Jerry NP | PCP | | + +------+ + Encounter Details +--------+ + + + + | Date | Type | Department | Care Team | Description | +--------+ + + + + | 05/29/ | Orders Only | [facility] | Conversion | | | 2012 | | CONVERSION DEP [address] | Transaction, | | | | | [address] | Provider Unknown | | | | | [place] | [phone] | | | | | [address] | | | | | | [phone] | | | +--------+ + + + [...]
--- OUTSIDE RECORDS SUMMARY | ~2020-03-25 | XMS | Encounter Summary ---
Demographics + + + | Address | [address] | | | [place] [address] | + + + | Home Phone | | + + + | Preferred Language | Unknown | + + + | Marital Status | Single | + + + | Lutheran Affiliation | Unknown | + + + | Race | White | + + + | Ethnic Group | Not or | + + + Author + + + | Author | [facility] | | | and [place] | + + + | Organization | [facility] | | | and [...] Team Providers + +------+ + | Care Utility Tender Carding Name | Role | Phone | + +------+ + | Lavon Jennings MD | PCP | | + +------+ + Encounter Details +--------+ + + + + | Date | Type | Department | Care Team | Description | +--------+ + + + + | 11/11/ | Orders Only | [facility] | Conversion | | | 2016 | | NEPHROLOGY [facility] | Transaction, | | | | | [address] | Provider Unknown | | | | | [address] | [phone] | | | | | [address] | | | | | | [phone] | | | +--------+ + + + [...] + + | PROTEIN/CREATININE | Routin | 11/11/2016 | | Results for this | | RATIO, URINE | e | 12:36 PM | | procedure are in the | | | | PDT | | results section. | + +--------+ + + + | PROTEIN | Routin | 11/11/2016 | | Results for this | | ELECTROPHORESIS AND | e | 12:36 PM | | procedure are in the | | PIPER, SERUM | | PDT | | results section. | + +--------+ + + + documented in this encounter Results Protein/Creatinine Ratio, Urine (11/11/2016 12:36 PM PDT) + + + + + + | Component | Value | Ref Range | Performed | Pathologist | | | | | At | Signature | + + + + + + | Protein/Cre | 204.5 (A) | 0 - 150 | EXTERNAL [...] | | | + +---------+ + + Protein Electrophoresis and PIPER, Serum (11/11/2016 12:36 PM PDT) + + | Specimen | + + | Blood specimen | | (specimen) | + + + + + | Narrative | Performed At | + + + | Protein 6.5 Range: 6.0-8.0 Albumin 4.32 Range: 3.2-5.5 Alpha 1 | EXTERNAL LAB | | 0.21 Range: 0.1-0.32 Alpha 2 0.66 Range: 0.54-0.90 Beta 0.78 Range: | | | 0.60-1.09 Gamma 0.52 Range: 0.36-1.8 Immunoglobulin G 578 Range: | | | 664-1411 Immunoglobulin A 245 Range: 66-433 Immunoglobulin M 31 | | | Range: 31-214 | | + + + + +---------+ + + | Performing | Address | City/State/Zipcode | Phone Number | | Organization | | | | + +---------+ + + | EXTERNAL LAB | | | | + +---------+ + + documented in this encounter Visit Diagnoses Not on filedocumented in this encounter"
--- OUTSIDE RECORDS SUMMARY | ~2020-03-25 | XMS | Encounter Summary ---
Demographics + + + | Address | [address] | | | [place] [address] | + + + | Home Phone | | + + + | Preferred Language | Unknown | + + + | Marital Status | Single | + + + | Congregational Affiliation | Unknown | + + + | Race | White | + + + | Ethnic Group | Not or | + + + Author + + + | Author | [facility] | | | and [place] | + + + | Organization | [facility] | | | [...] Team Providers + +------+ + | Care Juice Standardizer Name | Role | Phone | + +------+ + | Eric Jerry NP | PCP | | + +------+ + Encounter Details +--------+ + + + + | Date | Type | Department | Care Team | Description | +--------+ + + + + | 01/08/ | Orders Only | [facility] | Pacheco Munson MD | | | 2018 | | NEPRHOLOGY [place] | [address] [facility] | | | | | [address] | [address] [place], [place] | | | | | [address] [place], [place] | [address] | | | | | [address] | | | | | | [phone] | | | +--------+ + + + [...]
--- OUTSIDE RECORDS SUMMARY | ~2020-03-25 | XMS | Encounter Summary ---
Demographics + + + | Address | [address] | | | [place] [address] | + + + | Home Phone | | + + + | Preferred Language | Unknown | + + + | Marital Status | Single | + + + | Episcopalian Affiliation | Unknown | + + + [...] Team Providers + +------+ + | Care Legal Services Manager Name | Role | Phone | + +------+ + PCP | Unavailable | + +------+ + Encounter Details +--------+ + + + + | Date | Type | Department | Care Team | Description | +--------+ + + + + | 04/09/ | Orders Only | [facility] | Pacheco Munson MD | | | 2018 | | [address] | [address] [address] | | | | | [place], [place] | [address] | | | | | [address] | [address] | | | | | [phone] | | | +--------+ + + + [...] + | CALCULI ANALYSIS | Routin | 04/09/2018 | | Results for this | | | e | 10:26 AM | | procedure are in the | | | | PDT | | results section. | + +--------+ + + + documented in this encounter Results Calculi Analysis (04/09/2018 10:26 AM PDT) + + + + + [...]
[~2020-03-25 09:34] MED LIST changes: +INDAPAMIDE1.25 MG PO; +NORVASC5 MG PO
[2020-03-25] MEDS ORDERED: CARVEDILOL6.25 MG PO (12:46)
[2020-03-25] MEDS ORDERED: NORVASC5 MG PO (12:48)
== END 2020-03-25 13:26 | disposition home or self-care (01) ==
LOC: ED 09:34
DX: S09.90XA Unspecified injury of head, initial encounter (principal); I10 Essential (primary) hypertension; W01.10XA Fall on same level from slipping, tripping and stumbling with subsequent striking against unspecified object, initial encounter; Z87.891 Personal history of nicotine dependence; Z79.899 Other long term (current) drug therapy
CPT/HCPCS: 70450; 80048; 85025; 99284-25

== ENCOUNTER 2020-05-09 10:42 | Emergency (ER) | payer MEDICARE ==
[~2020-05-09] VITALS: Ht 182.9 cm; Wt 119.5 kg
[~2020-05-09 10:42] MED LIST changes: +CARVEDILOL6.25 MG PO
== END 2020-05-09 11:08 | disposition home or self-care (01) ==
LOC: ED 10:42
DX: K94.03 Colostomy malfunction (principal)

== ENCOUNTER 2020-05-17 18:46 | Emergency (ER) | payer MEDICARE ==
[~2020-05-17] VITALS: Ht 182.9 cm; Wt 119.5 kg
--- OUTSIDE RECORDS SUMMARY | 2020-05-17 18:48 | XMS ---
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 [place] VISIT COUNT (12 MO.) 3 [facility] TOTAL 3 NOTE: Visits indicate total known visits. ED/C VISIT TRACKING (12 MO.) 05/17/2020 18:47 [facility] TYPE: Emergency COMPLAINT: - BACK,LEFT SIDE PAIN 05/09/2020 10:43 [facility] [place] TYPE: Emergency COMPLAINT: - HOLE IN COLONOSCPY BAG DIAGNOSES: - Encounter for other general examination - Colostomy malfunction - Colostomy malfunction 03/25/2020 09:34 [facility] [place] TYPE: Emergency COMPLAINT: - FALL DIAGNOSES: - Essential (primary) hypertension - Unspecified injury of head, initial encounter - Fall on same level from slipping, tripping and stumbling with subsequent striking against unspecified object, initial encounter - Headache - Other [facility] ([facility] drug therapy - Personal history of nicotine dependence INPATIENT VISIT TRACKING (12 MO.) No inpatient visits to display in this time frame [email or web address]
[2020-05-18] MEDS ORDERED: KEFLEX500 MG PO (01:43)
== END 2020-05-17 20:41 | disposition left against medical advice (07) ==
LOC: ED 18:46
DX: Z53.21 Procedure and treatment not carried out due to patient leaving prior to being seen by health care provider (principal)

== ENCOUNTER 2020-05-17 23:16 | Emergency (ER) | payer MEDICARE ==
[~2020-05-17] VITALS: Ht 182.9 cm; Wt 120.2 kg
--- OUTSIDE RECORDS SUMMARY | 2020-05-17 23:20 | XMS ---
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 [place] VISIT COUNT (12 MO.) 4 [facility] TOTAL 4 NOTE: Visits indicate total known visits. ED/C VISIT TRACKING (12 MO.) 05/17/2020 23:17 [facility] [place] TYPE: Emergency COMPLAINT: - BACK LEFT SIDE PAIN 05/17/2020 18:47 [facility] [place] TYPE: Emergency COMPLAINT: - BACK,LEFT SIDE PAIN,MSE 05/09/2020 10:43 [facility] [place] TYPE: Emergency [...] object, initial encounter - Headache - Other [facility] (current) drug therapy - Personal history of nicotine dependence INPATIENT VISIT TRACKING (12 MO.) No inpatient visits to display in this time frame [email or web address]
[2020-05-18] MEDS ORDERED: KEFLEX500 MG PO (01:43)
--- NOTE | 2020-05-18 13:12 | EKG ---
[facility] [address] [facility] [place], [place] [address] Signed Normal sinus rhythm Right bundle branch block Abnormal ECG When compared with ECG of 24-JAN-2018 12:01, No significant change was found Confirmed by STACIE ONEILL DO ([id number]) on 05/18/2020 1:11:47 PM Electronically Signed By: STACIE ONEILL DO 05/18/20 1312 PATIENT NAME: SHANKAR DEVRIES Electrocardiogram DATE OF : 46 PHYSICIAN: STACIE ONEILL DO REPORT #: [id number] REPORT IS CONFIDENTIAL AND NOT TO BE RELEASED WITHOUT AUTHORIZATION
--- NOTE | 2020-05-19 18:37 | PATH ---
[facility] [address] [place], [place] [address] Signed ORDERING PHYSICIAN: Melecio Floyd MD PATIENT NAME: SHANKAR DEVRIES GENDER: M : 1950 Prior History: No cases found. SPECIMEN(S): No Source Given MOLECULAR PATHOLOGY RESULTS: SARS-CoV-2 Not Detected ADDITIONAL NOTES.: The [place] Fusion SARS-CoV-2 Assay is a multiplex real-time PCR (RT-PCR) in vitro diagnostic test intended for the qualitative detection of RNA from SARS-CoV-2 from individuals who meet COVID-19 clinical and/or epidemiological criteria. In general, SARS-CoV-2 RNA can be detected during the acute phase of infection. Positive results indicate the presence of SARS-CoV-2 RNA. Clinical correlation with patient history and other diagnostic information is necessary to determine patient infection status. Positive results do not rule out bacterial infection or co-infection with other viruses. Negative results do not preclude SARS-CoV-2 infection and should not be used as the sole basis for patient management decisions. Negative results must be combined with other clinical observations, patient history, and epidemiological information. The [place] Fusion SARS-CoV-2 Assay is not yet approved or cleared by the [place] FDA. When there are no FDA-approved or cleared tests available, and other criteria are met, FDA can make tests available under an emergency access mechanism called an Emergency Use Authorization (EUA). The EUA for this test is supported by the [place] of Health and Human Service's (HHS's) declaration that circumstances exist to justify the emergency use of in vitro diagnostics for the detection and/or diagnosis of the virus that causes COVID-19. This EUA will remain in effect for the duration of the COVID-19 declaration justifying emergency of IVDs, unless it is terminated or revoked by FDA, after which the test may no longer be used. The [place] Fusion SARS-CoV-2 Assay is for use only under EUA PATIENT NAME: SHANKAR DEVRIES PATHOLOGY DATE OF : 46 REPORT #: [id number] PHYSICIAN: SHARON PATHOLOGY PCP: ADRIEL MARES REPORT IS CONFIDENTIAL AND NOT TO BE RELEASED WITHOUT AUTHORIZATION [facility] [address] [place] [id number] Signed in laboratories certified under the Clinical Laboratory Improvement Amendments of 1988 (CLIA) to perform high complexity tests. [facility] is certified under CLIA to perform high complexity clinical laboratory testing. Jen Nick PERFORMING LABORATORY.: Molecular testing was performed by [facility] [place] [address] (Employee Communications Intern: David Fair D.O.; CLIA#: [id number]) Diagnostician: System Interface Pathologist Electronically Signed 05/19/2020 Copies: ~ PATIENT NAME: SHANKAR DEVRIES PATHOLOGY DATE OF : 46 REPORT #: [id number] PHYSICIAN: SHARON LOU PCP: ADRIEL MARES REPORT IS CONFIDENTIAL AND NOT TO BE RELEASED WITHOUT AUTHORIZATION
== END 2020-05-18 02:18 | disposition home or self-care (01) ==
LOC: ED 23:16
DX: N39.0 Urinary tract infection, site not specified (principal); M79.18 Myalgia, other site; Z20.828 Contact with and (suspected) exposure to other viral communicable diseases; I10 Essential (primary) hypertension; Z87.891 Personal history of nicotine dependence; Z79.899 Other long term (current) drug therapy
CPT/HCPCS: 71045; 80053; 81001; 83735; 84484; 85025; 93005; 93010; 96365; 96375; 96376; 99284-25; C9803; J0696; J1885

== ENCOUNTER 2020-07-04 13:49 | Emergency (ER) | payer MEDICARE ==
[~2020-07-04] VITALS: Ht 182.9 cm; Wt 120.2 kg
[~2020-07-04 13:49] MED LIST changes: +KEFLEX500 MG PO
== END 2020-07-04 14:11 | disposition home or self-care (01) ==
LOC: ED 13:49
DX: T83.018A Breakdown (mechanical) of other urinary catheter, initial encounter (principal)

== ENCOUNTER 2020-07-19 09:09 | Emergency (ER) | payer MEDICARE ==
[~2020-07-19] VITALS: Ht 182.9 cm; Wt 120.2 kg
--- OUTSIDE RECORDS SUMMARY | 2020-07-19 09:12 | XMS ---
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 CRITERIA MET - 6 ED Visits in 6 Months - [facility] - 2 Visits in 30 Days CARE PROVIDERS Spencer Harman PA-C Physician Tube Heater Current PHONE: Unknown Amrik has no Care Guidelines for this patient. [place] VISIT COUNT (12 MO.) 6 [facility]. TOTAL 6 NOTE: Visits indicate total known visits. ED/UCC VISIT TRACKING (12 MO.) 07/19/2020 09:10 [facility] [place] TYPE: Emergency COMPLAINT: - CATHETER CHANGE 07/04/2020 13:49 [facility] [place] TYPE: Emergency COMPLAINT: - CATHETER PROBLEM DIAGNOSES: - Breakdown (mechanical) of other urinary catheter, initial encounter 05/17/2020 23:17 [facility] [place] TYPE: Emergency COMPLAINT: - BACK LEFT SIDE PAIN DIAGNOSES: - Urinary tract infection, site not specified - Contact with and (suspected) exposure to other viral communicable diseases - Myalgia, other site - Essential (primary) hypertension - Personal history of nicotine dependence - Dorsalgia, unspecified - Other half-way (current) drug therapy - Low back pain 05/17/2020 18:47 [facility] [place] TYPE: Emergency COMPLAINT: - BACK,LEFT SIDE PAIN,MSE DIAGNOSES: - Procedure and treatment not carried out due to patient leaving prior to being seen by health care provider 05/09/2020 10:43 [facility] [place] TYPE: Emergency [...] object, initial encounter - Headache - Other half-way (current) drug therapy - Personal history of nicotine dependence INPATIENT VISIT TRACKING (12 MO.) No inpatient visits to display in this time frame [email or web address]
== END 2020-07-19 10:00 | disposition home or self-care (01) ==
LOC: ED 09:09
DX: T83.098A Other mechanical complication of other urinary catheter, initial encounter (principal); I10 Essential (primary) hypertension; Z79.899 Other long term (current) drug therapy
CPT/HCPCS: 51702; 99283-25

== ENCOUNTER 2020-08-12 04:15 | Emergency (ER) | payer MEDICARE ==
[~2020-08-12] VITALS: Ht 182.9 cm; Wt 120.2 kg
--- OUTSIDE RECORDS SUMMARY | 2020-08-12 04:18 | XMS ---
PreManage Notification: SHANKAR DEVRIES Security Glazier Structural Glass Events 1 event(s) in the past 18 months Most recent security events: Elopement at [facility] 05/17/2020 18:47 - Other Details: PATIENT LWBS. CRITERIA MET - 6 ED Visits in [address] [facility] - Has Care Guidelines - [facility] - 2 Visits in 30 Days CARE PROVIDERS Spencer Harman PA-C Physician Personnel Security Specialist Current PHONE: Unknown ADRIEL MARES Emergency Medicine 07/20/2020-Current PHONE: [phone] Amrik has no Care Guidelines for this patient. Care History Medical/Surgical 07/20/2020 [facility] Patient urologist Dr Dutton 07/20/2020 [facility] - Patient is currently established with [facility]. If patient is seen in the ED during business hours. Please contact CHWs at [facility]. Care Recommendation: If this patient has had 5 or more Emergency Department visits in the last 12 months.\T\nbsp; Patient will require education on the scope and purpose of the ED as an acute care provider not a Primary Care Provider and should not be utilized for chronic conditions.\T\nbsp; These are guidelines and the provider should exercise clinical judgment when providing care. 07/20/2020 [facility] Advised patient of using Walk In Clinic for future non life threatening medical treatment.\T\nbsp; Patient understood. E.D. VISIT COUNT (12 MO.) 7 [facility] TOTAL 7 NOTE: Visits indicate total known visits. ED/UCC VISIT TRACKING (12 MO.) 08/12/2020 04:16 [facility] [place] TYPE: Emergency COMPLAINT: - COLOSTOMY BAG PROBLEM,GENITAL PAIN 07/19/2020 09:10 [facility] [place] TYPE: Emergency COMPLAINT: - CATHETER CHANGE DIAGNOSES: - Other group home (current) drug therapy - Other mechanical complication of other urinary catheter, initial encounter - Essential (primary) hypertension 07/04/2020 13:49 [facility] [place] TYPE: Emergency [...] nicotine dependence - Dorsalgia, unspecified - Other group home (current) drug therapy - Low back pain [...] object, initial encounter - Headache - Other intermediate designer (current) drug therapy - Personal history of nicotine dependence INPATIENT VISIT TRACKING (12 MO.) No inpatient visits to display in this time frame [email or web address]
== END 2020-08-12 05:06 | disposition home or self-care (01) ==
LOC: ED 04:15
DX: T83.091A Other mechanical complication of indwelling urethral catheter, initial encounter (principal); I10 Essential (primary) hypertension; Z79.899 Other long term (current) drug therapy
CPT/HCPCS: 99283

== ENCOUNTER 2020-09-05 12:05 | Emergency (ER) | payer MEDICARE ==
[~2020-09-05] VITALS: Ht 182.9 cm; Wt 120.2 kg
--- OUTSIDE RECORDS SUMMARY | 2020-09-05 12:08 | XMS ---
PreManage Notification: SHANKAR DEVRIES Security Livestock Nutrition Territory Manager Events 1 event(s) in the past 18 months Most recent security events: Elopement at [facility] 05/17/2020 18:47 - Other Details: PATIENT LWBS. CRITERIA MET - 6 ED Visits in 6 Months - [facility] - Has Care Guidelines - [facility] - 2 Visits in 30 Days CARE PROVIDERS Spencer Harman PA-C Physician Dog Track Kennel Manager Current PHONE: Unknown ADRIEL MARES Emergency Medicine 07/20/2020-Current PHONE: [phone] Amrik has no Care Guidelines for this patient. Care History Medical/Surgical 07/20/2020 [facility] Patient urologist Dr Dutton 07/20/2020 [facility] - Patient is currently established with [facility]. If patient is seen in the ED during business hours. Please contact CHWs at [facility]. Care Recommendation: If this patient has had 5 or more Emergency Department visits in the last 12 months.\T\nbsp; Patient will require education on the scope and purpose of the ED as an acute care provider not a Primary Care Provider and should not be utilized for chronic conditions.\T\nbsp; These are guidelines and the provider should exercise clinical judgment when providing care. 07/20/2020 [facility] Advised patient of using Walk In Clinic for future non life threatening medical treatment.\T\nbsp; Patient understood. E.D. VISIT COUNT (12 MO.) 8 [facility] TOTAL 8 NOTE: Visits indicate total known visits. ED/UCC VISIT TRACKING (12 MO.) [facility] COMPLAINT: - MEDICATION REFILL 08/12/2020 04:16 [facility] [place] TYPE: Emergency COMPLAINT: - COLOSTOMY BAG PROBLEM,GENITAL PAIN DIAGNOSES: - Other mechanical complication of indwelling urethral catheter, initial encounter - Other [facility] (current) drug therapy - Essential (primary) hypertension 07/19/2020 09:[address] [facility] [place] TYPE: Emergency COMPLAINT: - CATHETER CHANGE DIAGNOSES: - Other [facility] (current) drug therapy - Other mechanical complication of other urinary catheter, initial encounter - Essential (primary) hypertension 07/04/2020 13:[address] [facility] [place] TYPE: Emergency COMPLAINT: - CATHETER PROBLEM [...] nicotine dependence - Dorsalgia, unspecified - Other [facility] (current) drug therapy - Low back pain [...] object, initial encounter - Headache - Other termite control technician (current) drug therapy - Personal history of nicotine dependence INPATIENT VISIT TRACKING (12 MO.) No inpatient visits to display in this time frame [id number]
[2020-09-05] MEDS ORDERED: AZOR 5-20 MG T1 EACH PO (12:48)
== END 2020-09-05 13:15 | disposition home or self-care (01) ==
LOC: ED 12:05
DX: Z76.0 Encounter for issue of repeat prescription (principal); I10 Essential (primary) hypertension; Z79.899 Other long term (current) drug therapy
CPT/HCPCS: 99284

== ENCOUNTER 2020-10-05 16:53 | Emergency (ER) | payer MEDICARE ==
[~2020-10-05] VITALS: Ht 182.9 cm; Wt 120.2 kg
[~2020-10-05 16:53] MED LIST changes: +AZOR 5-20 MG T1 EACH PO
--- OUTSIDE RECORDS SUMMARY | 2020-10-05 16:54 | XMS ---
PreManage Notification: SHANKAR DEVRIES Security Spa Consultant Events 1 event(s) in the past 18 months Most recent security events: Elopement at [facility] 05/17/2020 18:47 - Other Details: PATIENT LWBS. CRITERIA MET - 6 ED Visits in 6 Months - [facility] - Has Care Guidelines - [facility] - 2 Visits in 30 Days CARE PROVIDERS Spencer Harman PA-C Physician Document Specialist Current PHONE: Unknown ADRIEL MARES Emergency Medicine 07/20/2020-Current PHONE: [phone] Amrik has no Care Guidelines for this patient. Care History Medical/Surgical 09/07/2020 [facility] - PATIENT HAS HAD MULTIPLE HOME VISITS- DUE TO MEDICATION COMPLIANCE. MULTIPLE APS REPORTS FILED WITH CARLEY SARAVIA DUE TO ONGOING CONCERNS WITH PATIENT LIVING AT HOME ALONE. - PATIENT RECENTLY LOST ALL HIS MEDICATIONS AND IS STATING SOMEONE WITH THE LAST NAME MCKEON TOOK ALL HIS MEDICATIONS AND HIS TV CHANNELS- CHW VERY CONCERNED WITH PATIENT COGNITION- REPORTED CONCERNS TO PATIENT PCP ADRIEL MARES AND REPORTED CONCERNS TO APS -[facility] CARLEY SARAVIA- AND NOTIFIED LOCAL PD OFFICE OF CONCERNS. PATIENT IS A HIGH RISK PATIENT WITH LIVING AT HOME ALONE. CHW DISCUSSED CONCERNS WITH PATIENT BUT PATIENT DOESN\T\#39;T WANT TO LEAVE HIS CURRENT RESIDENCE AND DOES NOT WANT TO PROVIDE [facility] FINANCIAL INFORMATION TO RECEIVE ASSISTANCE WITH ASSISTED LIVING FACILITIES. - PATIENT STATED HE WANTS TO PUT A BULLET IN THIS KODY MCKEON HEAD WHO KEEPS STEALING HIS MEDICATIONS AND TAKING HIS TV CHANNELS- HE SAID HE WANTS TO PURCHASE A GUN TO DO IT. CHW STATED THAT IS NOT A GOOD IDEA AND THAT THIS STATEMENT HAS TO BE REPORTED TO LOCAL [place] PD OFFICE- CHW CONTACTED [place] [employer] AND MADE REPORT. WAITING ON RETURN CALL. 07/20/2020 [facility] Patient urologist Dr Dutton 07/20/2020 [facility] - Patient is currently established with [facility]. If patient is seen in the ED during business hours. Please contact CHWs at [facility]. Care Recommendation: If this patient has had 5 or more Emergency Department visits in the last 12 months.\T\nbsp; Patient will require education on the scope and purpose of the ED as an acute care provider not a Primary Care Provider and should not be utilized for chronic conditions.\T\nbsp; These are guidelines and the provider should exercise clinical judgment when providing care. E.D. VISIT COUNT (12 MO.) 9 [facility]. TOTAL 9 NOTE: Visits indicate total known visits. ED/UCC VISIT TRACKING (12 MO.) 10/05/2020 16:53 [facility] [place] TYPE: Emergency COMPLAINT: - LOWER BACK PAIN 09/05/2020 12:06 [facility] [place] TYPE: Emergency COMPLAINT: - MEDICATION REFILL DIAGNOSES: - Essential (primary) hypertension - Other jail (current) drug therapy - Encounter for issue of repeat prescription 08/12/2020 04:16 [facility] [place] TYPE: Emergency COMPLAINT: - COLOSTOMY BAG PROBLEM,GENITAL PAIN DIAGNOSES: - Other mechanical complication of indwelling urethral catheter, initial encounter - Other predatory animal exterminator (current) drug therapy - Essential (primary) hypertension 07/19/2020 09:10 [facility] [place] TYPE: Emergency COMPLAINT: - CATHETER CHANGE DIAGNOSES: - Other jail (current) drug therapy - Other mechanical complication [...] nicotine dependence - Dorsalgia, unspecified - Other predatory animal exterminator (current) drug therapy - Low back pain [...] object, initial encounter - Headache - Other predatory animal exterminator (current) drug therapy - Personal history of nicotine dependence INPATIENT VISIT TRACKING (12 MO.) No inpatient visits to display in this time frame [email or web address]
[2020-10-05] MEDS ORDERED: ACETAMINOPHEN-1 EAC1 PO (20:01)
== END 2020-10-05 20:25 | disposition home or self-care (01) ==
LOC: ED 16:53
DX: S39.012A Strain of muscle, fascia and tendon of lower back, initial encounter (principal); X58.XXXA Exposure to other specified factors, initial encounter; I10 Essential (primary) hypertension; Z87.891 Personal history of nicotine dependence; Z79.899 Other long term (current) drug therapy
CPT/HCPCS: 96374; 99283-25; J1885

== ENCOUNTER 2020-10-14 17:07 | Emergency (ER) | payer MEDICARE ==
[~2020-10-14] VITALS: Ht 182.9 cm; Wt 122.5 kg
[~2020-10-14 17:07] MED LIST changes: +ACETAMINOPHEN-1 EAC1 PO
--- OUTSIDE RECORDS SUMMARY | 2020-10-14 17:10 | XMS ---
PreManage Notification: SHANKAR DEVRIES Security Computer System Technician Events 1 event(s) in the past 18 months Most recent security events: Elopement at [facility] 05/17/2020 18:47 - Other Details: PATIENT LWBS. CRITERIA MET - 6 ED Visits in 6 Months - [facility] - Has Care Guidelines - [facility] - 2 Visits in 30 Days CARE PROVIDERS ADRIEL MARES Emergency Medicine 07/20/2020-Current PHONE: [phone] Amrik has no Care Guidelines for this patient. Care History Medical/Surgical 09/07/2020 [facility] - PATIENT HAS HAD MULTIPLE HOME VISITS- DUE TO MEDICATION COMPLIANCE. MULTIPLE APS REPORTS FILED WITH CARLEY SARAVIA DUE TO ONGOING CONCERNS WITH PATIENT LIVING AT HOME ALONE. - PATIENT RECENTLY LOST ALL HIS MEDICATIONS AND IS STATING SOMEONE WITH THE LAST NAME LINDA TOOK ALL HIS MEDICATIONS AND HIS TV CHANNELS- CHW VERY CONCERNED WITH PATIENT COGNITION- REPORTED CONCERNS TO PATIENT PCP ADRIEL MARES AND REPORTED CONCERNS TO APS -[facility] CARLEY SARAVIA- AND NOTIFIED LOCAL PD OFFICE OF CONCERNS. PATIENT IS A HIGH RISK PATIENT WITH LIVING AT HOME ALONE. CHW DISCUSSED CONCERNS WITH PATIENT BUT PATIENT DOESN\T\#39;T WANT TO LEAVE HIS CURRENT RESIDENCE AND DOES NOT WANT TO PROVIDE [facility] FINANCIAL INFORMATION TO RECEIVE ASSISTANCE WITH ASSISTED LIVING FACILITIES. 07/20/2020 [facility] Patient urologist Dr Dutton 07/20/2020 [facility] - Patient is currently established with [facility]. If patient is seen in the ED during business hours. Please contact CHWs at [facility]. Care Recommendation: If this patient has had [...] providing care. E.D. VISIT COUNT (12 MO.) 10 [facility] TOTAL 10 NOTE: Visits indicate total known visits. ED/UCC VISIT TRACKING (12 MO.) 10/14/2020 17:08 [facility] [place] TYPE: Emergency COMPLAINT: - LOWER BACK PAIN 10/05/2020 16:53 [facility] [place] TYPE: Emergency COMPLAINT: - LOWER BACK PAIN DIAGNOSES: - Essential (primary) hypertension - Other equipment operator intermodal yard (current) drug therapy - Exposure to other specified factors, initial encounter - Strain of muscle, fascia and tendon of lower back, initial encounter - Low back pain - Personal history of nicotine dependence 09/05/2020 12:06 [facility] [place] TYPE: Emergency COMPLAINT: - MEDICATION REFILL DIAGNOSES: - Essential (primary) hypertension - Other nursing home (current) drug therapy - Encounter for issue of repeat prescription 08/12/2020 04:16 [facility] [place] TYPE: Emergency COMPLAINT: - COLOSTOMY BAG PROBLEM,GENITAL PAIN DIAGNOSES: - Other mechanical complication of indwelling urethral catheter, initial encounter - Other nursing home (current) drug therapy - Essential (primary) hypertension 07/19/2020 09:10 [facility] [place] TYPE: Emergency COMPLAINT: - CATHETER CHANGE DIAGNOSES: - Other nursing home (current) drug therapy - Other mechanical [...] nicotine dependence - Dorsalgia, unspecified - Other nursing home (current) drug therapy - Low back [...] object, initial encounter - Headache - Other equipment operator intermodal yard (current) drug therapy - Personal history of nicotine dependence INPATIENT VISIT TRACKING (12 MO.) No inpatient visits to display in this time frame [id number]
[2020-10-14] MEDS ORDERED: CYCLOBENZAPRINE10 MG PO (22:15)
== END 2020-10-14 22:29 | disposition home or self-care (01) ==
LOC: ED 17:07
DX: G89.29 Other chronic pain (principal); M54.5 Low back pain; I10 Essential (primary) hypertension; Z87.891 Personal history of nicotine dependence; Z79.899 Other long term (current) drug therapy
CPT/HCPCS: 99283